=== PATIENT | male | born 1960 | race Caucasian/White ===

== ENCOUNTER 2018-06-11 11:42 | Inpatient (IN) ==
[2018-06-11] MEDS ORDERED: Piperacillin/Tazobactam 3.375 GM in 0.9 % Sodium Chloride Mini Bag 100 ML IVPB ONE (12:52)
[2018-06-11 13:06] LABS: Basophils % 0.2 %; Eosinophils # 0.2 K/mcL (0.0-0.6); Eosinophils % 2.2 %; Hemoglobin 12.4 g/dL (12.9-16.9); Immature Granulocytes % 0.5 % (0-4); Lymphocytes # 1.9 K/mcL (0.6-4.6); Lymphocytes % 20.2 %; Mean Corpuscular HGB Conc 32.6 g/dL (31.6-35.5); Mean Corpuscular Hemoglobin 31.8 pg (28.0-33.3); Mean Corpuscular Volume 97.4 fL (83.0-100.0); Mean Platelet Volume 9.4 fL (9.4-12.4); Monocytes # 0.8 K/mcL (0.0-1.3); Monocytes % 8.7 %; Neutrophils # 6.3 K/mcL (1.6-8.9); Platelet Count 203 K/mcL (140-400); Red Cell Distribution Width 13.3 % (11.5-14.5); Segmented Neutrophils % 68.2 %
[2018-06-11 13:24] LABS: BUN/Creatinine Ratio 16 (6-26); Blood Urea Nitrogen 21 mg/dL (8-23); Calcium 9.1 mg/dL (8.6-10.3); Carbon Dioxide 26 mEq/L (23-29); Chloride 102 mEq/L (98-107); Glucose 247 mg/dL (70-105); Osmolality,Calculated 289 (280-300); Potassium 4.4 mEq/L (3.5-5.1); Sodium 134 mEq/L (136-145); eGFR For Non-African Americans 54 (> 60)
--- NOTE | 2018-06-11 13:28 | Emergency Department Note ---
Disposition Clinical Impression: Cellulitis Qualifiers: Site of cellulitis: extremity Site of cellulitis of extremity: lower extremity Laterality: left Qualified Code(s): L03.116 - Cellulitis of left lower limb Disposition: Admitted As Inpatient Condition: Fair Time of Disposition: 16:35 General Adult HPI - General Chief complaint: ED Extremity Problem,Nontraumatic Stated complaint: Left leg infection Time Seen by Provider: 06/11/18 12:07 Source: patient Mode of arrival: ambulatory Limitations: no limitations Nursing Notes Reviewed: Yes Vital Signs Reviewed: Yes - History of Present Illness HPI Narrative: Patient is a 58-year-old male with past medical history of diabetes presents emergency department for evaluation of left lower extremity cellulitis. Patient states his symptoms started approximately 3 days ago which he noticed redness and swelling to left lower extremity. He is seen by his primary care provider 2 days ago in which she started oral antibiotics he states he is currently on day 3 of antibiotics with no change. She thinks that the redness is getting worse is also having left-sided calf tenderness. He states he does have a history of DVT in the past. He is recommended to come to the emergency room by his primary care physician for evaluation of concerns for cellulitis. Pain Scale: 8 - Related Data Home Medications Medication Instructions Recorded Confirmed Ibuprofen [Advil] 400 mg PO QAM 09/15/17 06/11/18 Insulin LISPRO [Humalog Kwikpen 18 - 22 unit SQ TID PRN 09/15/17 06/11/18 U-100] Lisinopril [Zestril] 20 mg PO DAILY 09/15/17 06/11/18 Atorvastatin [Lipitor] 40 mg PO HS 06/11/18 06/11/18 Fexofenadine HCl [Allergy Relief] 180 mg PO DAILY 06/11/18 06/11/18 Fluticasone Propionate Nasal 1 spr NS DAILY 06/11/18 06/11/18 [Flonase] Gabapentin [Neurontin] 600 mg PO TID 06/11/18 06/11/18 Glimepiride [Amaryl] 4 mg PO DAILY 06/11/18 06/11/18 Insulin Glargine,Hum.rec.anlog 50 unit SQ QPM 06/11/18 06/11/18 [Basaglar Kwikpen U-100] Insulin Glargine,Hum.rec.anlog 60 unit SQ QAM 06/11/18 06/11/18 [Mariah Oates U-100] Meloxicam [Mobic] 7.5 mg PO DAILY 06/11/18 06/11/18 Previous Rx's Medication Instructions Recorded Acetaminophen [Tylenol] 1,000 mg PO Q6HR PRN #90 tablet 09/15/17 Allergies Allergy/AdvReac Type Severity Reaction Status Date / Time No Known Allergies Allergy Verified 06/11/18 13:30 All systems ED: reviewed and negative except as stated. Review of Systems: As Per HPI Constitutional: Denies: fever, chills Cardiovascular: Reports: edema. Denies: chest pain, palpitations, dyspnea on exertion, syncope Respiratory: Denies: cough, dyspnea, wheezes, sputum production Gastrointestinal: Denies: abdominal pain, nausea, vomiting Integumentary: Reports: rash Past Medical History - Past Medical History Attestation: Yes The following information was validated with the patient. Medical history: Reports: DVT, diabetes, hypertension, other Surgical history: Reports: orthopedic, other Psychiatric history: Reports: depression - Social History Smoking Status: Never smoker Smokeless Tobacco Status: No Alcohol use: Reports: none Drug use: Reports: none Physical Exam CONSTITUTIONAL: Well-appearing; well-nourished; A&O X 3, in no apparent distress HEAD: Normocephalic; atraumatic EYES: PERRL, no scleral icterus NOSE: The nose is normal in appearance without rhinorrhea NECK: No JVD or distended neck veins RESP: Normal chest excursion with respiration; breath sounds clear and equal bilaterally; no wheezes, rhonchi, or rales CARD: Regular rhythm, without murmurs, rub or gallop ABD: Non-distended; non-tender, soft, without rigidity, rebound or guarding,no pulsatile mass CHEST: No pain with palpation SKIN: Normal for age and race; warm and dry without diaphoresis ; no apparent lesions EXTREMITIES: Pulses are 2 plus and equal times 4 extremities. Patient has bilateral lower extremity edema, worse on the left. The left leg is erythematous from below the knee to the lower ankle. Both legs have chronic venous stasis changes. Course Course Narrative: Given the patient has increasing redness of his left lower extremity plan this time is for him to undergo basic labs and he will be admitted for cellulitis with failed outpatient treatment. We will start him on broad-spectrum antibiotics at this time including vancomycin and Zosyn. He also had a DVT ruled out with a lower extremity Doppler that was negative. Vital Signs Temperature 100.0 F H 06/11/18 11:47 Pulse Rate 90 06/11/18 11:47 Respiratory Rate 22 06/11/18 11:47 Blood Pressure 162/68 06/11/18 11:47 O2 Sat by Pulse Oximetry 94 06/11/18 11:47 Temperature 100.0 F H 06/11/18 11:47 Pulse Rate 90 06/11/18 11:47 Respiratory Rate 22 06/11/18 11:47 Blood Pressure 162/68 06/11/18 11:47 O2 Sat by Pulse Oximetry 94 06/11/18 11:47 Oxygen Delivery Oxygen Delivery Room Air Medical Decision Making - Medical Records Medical records reviewed: Yes I reviewed the patient's medical records. - Lab Data Lab results reviewed: Yes I reviewed the patient's lab results. Result diagrams: 06/11/18 12:45 06/11/18 12:45 Lab Results 06/11/18 06/11/18 Range/Units 12:45 12:45 WBC 9.3 (4.3-11.1) K/mcL RBC 3.90 L (4.19-5.50) M/mcL Hgb 12.4 L (12.9-16.9) g/dL Hct 38.0 (37.5-50.1) % MCV 97.4 (83.0-100.0) fL MCH 31.8 (28.0-33.3) pg MCHC 32.6 (31.6-35.5) g/dL RDW 13.3 (11.5-14.5) % Plt Count 203 (140-400) K/mcL MPV 9.4 (9.4-12.4) fL Immature Gran % 0.5 (0-4) % Seg Neutrophils % 68.2 % Lymphocytes % 20.2 % Monocytes % 8.7 % Eosinophils % 2.2 % Basophils % 0.2 % Neutrophils # 6.3 (1.6-8.9) K/mcL Lymphocytes # 1.9 (0.6-4.6) K/mcL Monocytes # 0.8 (0.0-1.3) K/mcL Eosinophils # 0.2 (0.0-0.6) K/mcL Basophils # 0.0 (0.0-0.2) K/mcL Sodium 134 L (136-145) mEq/L Potassium 4.4 (3.5-5.1) mEq/L Chloride 102 (98-107) mEq/L Carbon Dioxide 26 (23-29) mEq/L BUN 21 (8-23) mg/dL Creatinine 1.35 H (0.70-1.30) mg/dL Est GFR ( Amer) > 60 (> 60) Est GFR (Non-Af Amer) 54 L (> 60) BUN/Creatinine Ratio 16 (6-26) Glucose 247 H (70-105) mg/dL Calculated Osmolality 289 (280-300) Calcium 9.1 (8.6-10.3) mg/dL - Radiology Data Radiology results reviewed: Yes I reviewed the patient's radiology results.
--- NOTE | 2018-06-11 13:33 | Emergency Department Note ---
Disposition Clinical Impression: Cellulitis Qualifiers: Site of cellulitis: extremity Site of cellulitis of extremity: lower extremity Laterality: left Qualified Code(s): L03.116 - Cellulitis of left lower limb Disposition: Admitted As Inpatient Condition: Fair Referrals: Perla Manuel CNP [Primary Care Provider] - Forms: ED Satisfaction Letter General Adult HPI - General Chief complaint: ED Extremity Problem,Nontraumatic Stated complaint: Left leg infection Time Seen by Provider: 06/11/18 12:07 - History of Present Illness Pain Scale: 8 - Related Data Home Medications Medication Instructions Recorded Confirmed Ibuprofen [Advil] 400 mg PO QAM 09/15/17 09/15/17 Insulin Glargine,Hum.rec.anlog 60 unit SQ BID 09/15/17 09/15/17 [Lantus Solostar] Insulin LISPRO [Humalog Kwikpen 18 - 22 unit SQ TID PRN 09/15/17 09/15/17 U-100] Lisinopril [Zestril] 20 mg PO DAILY 09/15/17 09/15/17 Previous Rx's Medication Instructions Recorded Acetaminophen [Tylenol] 1,000 mg PO Q6HR PRN #90 tablet 09/15/17 Allergies Allergy/AdvReac Type Severity Reaction Status Date / Time No Known Allergies Allergy Verified 09/15/17 12:15 Past Medical History - Past Medical History Medical history: Reports: DVT, diabetes, hypertension, other Surgical history: Reports: orthopedic, other Psychiatric history: Reports: depression - Social History Smoking Status: Never smoker Smokeless Tobacco Status: No Alcohol use: Reports: none Drug use: Reports: none Course Vital Signs Temperature 100.0 F H 06/11/18 11:47 Pulse Rate 90 06/11/18 11:47 Respiratory Rate 22 06/11/18 11:47 Blood Pressure 162/68 06/11/18 11:47 O2 Sat by Pulse Oximetry 94 06/11/18 11:47 Temperature 100.0 F H 06/11/18 11:47 Pulse Rate 90 06/11/18 11:47 Respiratory Rate 22 06/11/18 11:47 Blood Pressure 162/68 06/11/18 11:47 O2 Sat by Pulse Oximetry 94 06/11/18 11:47 Oxygen Delivery Oxygen Delivery Room Air Medical Decision Making - Lab Data Result diagrams: 06/11/18 12:45 06/11/18 12:45 Lab Results 06/11/18 06/11/18 Range/Units 12:45 12:45 WBC 9.3 (4.3-11.1) K/mcL RBC 3.90 L (4.19-5.50) M/mcL Hgb 12.4 L (12.9-16.9) g/dL Hct 38.0 (37.5-50.1) % MCV 97.4 (83.0-100.0) fL MCH 31.8 (28.0-33.3) pg MCHC 32.6 (31.6-35.5) g/dL RDW 13.3 (11.5-14.5) % Plt Count 203 (140-400) K/mcL MPV 9.4 (9.4-12.4) fL Immature Gran % 0.5 (0-4) % Seg Neutrophils % 68.2 % Lymphocytes % 20.2 % Monocytes % 8.7 % Eosinophils % 2.2 % Basophils % 0.2 % Neutrophils # 6.3 (1.6-8.9) K/mcL Lymphocytes # 1.9 (0.6-4.6) K/mcL Monocytes # 0.8 (0.0-1.3) K/mcL Eosinophils # 0.2 (0.0-0.6) K/mcL Basophils # 0.0 (0.0-0.2) K/mcL Sodium 134 L (136-145) mEq/L Potassium 4.4 (3.5-5.1) mEq/L Chloride 102 (98-107) mEq/L Carbon Dioxide 26 (23-29) mEq/L BUN 21 (8-23) mg/dL Creatinine 1.35 H (0.70-1.30) mg/dL Est GFR ( Amer) > 60 (> 60) Est GFR (Non-Af Amer) 54 L (> 60) BUN/Creatinine Ratio 16 (6-26) Glucose 247 H (70-105) mg/dL Calculated Osmolality 289 (280-300) Calcium 9.1 (8.6-10.3) mg/dL Attestation Statement - Attestation Attestation: I examined this patient and my medical decision-making was reviewed with the Resident Physician. I agree with the documented findings, disposition and treatment plan as described except to the extent set forth below. 58 year old male kristen ot the ED with complaitns cellutlisi to his LLE. Susan states that he has been taking outpatinet therapy with ABX and it has not been working in addiiton to being a diabetic and feeling more nauseated than usual with a decreased appetite. He is insulin dependent. We will start zosyn and vanc and then admit to medicine as well as evalutd his diabetes to ensure that he is not in DKA.
[2018-06-11] MEDS ORDERED: Naloxone 0.4 MG/ML INJ IVP PRN (16:24)
[2018-06-11] MEDS ORDERED: *HR* Dextrose 50 % in Water (Syg) 50 ML SYRINGE IVP PRN (16:29)
[2018-06-11] MEDS ORDERED: D5% in Water 1,000 ML IVC PRN (16:29)
[2018-06-11] MEDS ORDERED: Dextrose Gel 15 GM/37.5 ML TUBE PO PRN ×2 (16:29)
--- NOTE | 2018-06-11 16:39 | Internal Med History&Physical ---
<Noemi Tubbs - Last Filed: 06/12/18 18:06> Date of Encounter: 06/12/18 Time of Encounter: 16:32 Internal Medicine - H&P: HPI Chief complaint: Left leg pain redness swelling Admitted From: Emergency Dept Plans for Post Hospital Care: Home History of present illness: Mr. Wesley is a 58 year old male past medical history of diabetes hypertension - according to patient he has been experiencing redness and swelling and pain to his left lower extremity for approximately 3 days. He was seen by his primary care provider 2 days ago he started him on oral antibiotics Bactrim and clindamycin and Levaquin He does admit to nausea fevers and chills . He states he has been able to eat and drink and has had adequate urinary output He thought that the redness has worsened and he has left-sided calf tenderness. He does have a history of DVT in the past. He also has a past history of cellulitis in the same leg. He was treated partly one year ago with oral antibiotics however he felt that the cellulitis really never resolved. He presented to the ER with the above complaints. Venous duplex negative for DVT In the ER lab work did reveal aAKI and elevated glucose. He did have a low- grade temperature of 100 one presentation. Blood cultures were obtained patient was initiated on vancomycin and Zosyn and has been admitted for further workup and evaluation currently patient complains of left lower leg pain his leg is red and swollen and tender to touch. Gait as he would replace stable this time. I did review this case with Past Med Surg Social Fam HX - Past Medical History Medical history: DVT, diabetes, hypertension, other Additional medical history: pyelonephritis, obesity,colitis, Psychiatric history: depression - Past Surgical History Surgical History: orthopedic, other Additional surgical history: heart cath no stents, hand surgery, left leg - Social History Smoking Status: Never smoker Smokeless Tobacco Status: No Alcohol use: none Drug use: none - Family History Father Living Status: Age at : 64 Cause of : MA Internal Medicine - H&P: Meds Acetaminophen [Tylenol] 1,000 mg PO Q6HR PRN #90 tablet 09/15/17 [Rx] Ibuprofen [Advil] 400 mg PO QAM 09/15/17 [History] Insulin LISPRO [Humalog Kwikpen U-100] 18 - 22 unit SQ TID PRN 09/15/17 [History ] Lisinopril [Zestril] 20 mg PO DAILY 09/15/17 [History] Atorvastatin [Lipitor] 40 mg PO HS 06/11/18 [History] Fexofenadine HCl [Allergy Relief] 180 mg PO DAILY 06/11/18 [History] Fluticasone Propionate Nasal [Flonase] 1 spr NS DAILY 06/11/18 [History] Gabapentin [Neurontin] 600 mg PO TID 06/11/18 [History] Glimepiride [Amaryl] 4 mg PO DAILY 06/11/18 [History] Insulin Glargine,Hum.rec.anlog [Basaglar Kwikpen U-100] 50 unit SQ QPM 06/11/18 [History] Insulin Glargine,Hum.rec.anlog [Basaglar Kwikpen U-100] 60 unit SQ QAM 06/11/18 [History] Meloxicam [Mobic] 7.5 mg PO DAILY 06/11/18 [History] 3 Allergy/AdvReac Type Severity Reaction Status Date / Time No Known Allergies Allergy Verified 06/11/18 13:30 All Systems PM: A 10-system review of systems was performed and is negative for pertinent findings except as documented above in the HPI. - Constitutional Constitutional: chills, fever(s) - EENT Eyes: no change in vision, no discharge, no pain, no photophobia Nose, mouth and throat: no dysphagia, no nasal discharge, no neck pain, no sore throat - Cardiovascular Cardiovascular ROS IM: no chest pain, no diaphoresis, no dyspnea, no lightheadedness, no palpitations, no syncope - Respiratory Respiratory: no cough, no dyspnea, no wheezing, no excessive phlegm production - Gastrointestinal Gastrointestinal: nausea - Musculoskeletal Musculoskeletal ROS IM: no numbness, no tingling - Integumentary Integumentary IM: no rash, no unusual bruising - Neurological Neurological ROS: no confusion, no convulsions, no focal weakness, no numbness, no tingling, no tremor(s) - Hematologic/Lymphatic Hematologic/Lymphatic: no easy bruising - Constitutional Vitals: Temp Pulse Resp BP Pulse Ox 100.0 F H 90 22 162/68 94 06/11/18 11:47 06/11/18 11:47 06/11/18 11:47 06/11/18 11:47 06/11/18 11:47 General appearance: Present: A&O X 3, morbidly obese Exam: see above - Head Head exam: Present: atraumatic, normocephalic - Eye Eye exam: Present: PERRL, conjuntiva pink, sclera anicteric - Neck Neck exam general surgery: Present: supple, trachea midline. Absent: lymphadenopathy - Respiratory Respiratory exam: Present: CTAB. Absent: accessory muscle use, rales, rhonchi, wheezes - Cardiovascular Cardiovascular exam: Present: RRR, +S1, +S2. Absent: diastolic murmur, gallop, rubs, systolic murmur - GI/Abdominal GI/Abdominal exam: Present: normal bowel sounds, soft, no peritoneal signs. Absent: distended, tenderness - Extremities Exam Extremities exam: Present: pedal edema, tenderness, warm, radial pulses palpable and symmetrical. Absent: calf tenderness, cyanotic - Neurological Exam Neurological exam: Present: CN II-XII intact, oriented X3, no focal deficits. Absent: pronater drift, facial droop, speech deficit - Skin Skin exam: Present: dry, erythema, intact, warm Internal Med - H&P Results - Labs CBC & Chem 7: 06/12/18 03:55 06/12/18 03:55 - Assessment and plan (1) Cellulitis Current Visit: Yes Status: Acute Assessment and plan: Patient has been experiencing 3-4 days of redness swelling tenderness to the point he is unable to ambulate. He was placed on Bactrim and Levaquin and clindamycin by PCP however symptoms continue to worsen. He also expansion chills and subjective fevers. We will continue with vancomycin and Zosyn Blood cultures have been obtained Continue with Zofran as needed for nausea Tylenol and [place] for pain Qualifiers: Site of cellulitis: extremity Site of cellulitis of extremity: lower extremity Laterality: left Qualified Code(s): L03.116 - Cellulitis of left lower limb (2) Diabetes Current Visit: Yes Status: Acute Assessment and plan: 1 Accu-Cheks before meals at bedtime with insulin scale insulin as well as basal Diabetic diet Qualifiers: Diabetes mellitus type: type 2 Diabetes mellitus termite control servicer insulin use: with termite control servicer use Diabetes mellitus complication status: without complication Qualified Code(s): E11.9 - Type 2 diabetes mellitus without complications; Z79.4 - [facility] (current) use of insulin (3) HTN (hypertension) Current Visit: Yes Status: Acute Assessment and plan: Continue with home medications Qualifiers: Hypertension type: essential hypertension Qualified Code(s): I10 - Essential (primary) hypertension (4) DVT prophylaxis Current Visit: Yes Status: Acute Assessment and plan: Heparin subcutaneous. Venous Doppler negative for DVT - Time Spent With Patient Total time spent is greater than 50% in coordination of care (as documented) at patient's floor/unit and/or counseling patient: <Lobo Golden - Last Filed: 06/12/18 21:45> Date of Encounter: 06/12/18 Internal Medicine - H&P: HPI History of present illness: Mr. Wesley is a 58 year old male All Systems PM: A 10-system review of systems was performed and is negative for pertinent findings except as documented above in the HPI. - Constitutional Vitals: Temp Pulse Resp BP Pulse Ox 98.2 F 65 18 166/82 96 06/12/18 19:40 06/12/18 19:40 06/12/18 19:40 06/12/18 19:40 06/12/18 19:40 Internal Med - H&P Results - Labs CBC & Chem 7: 06/12/18 03:55 06/12/18 03:55 Labs: Short CBC 06/12/18 Range/Units 03:55 WBC 10.0 (4.3-11.1) K/mcL Hgb 11.3 L (12.9-16.9) g/dL Hct 34.7 L (37.5-50.1) % Plt Count 209 (140-400) K/mcL Neutrophils # 6.3 (1.6-8.9) K/mcL BMP 06/12/18 03:55 Sodium 135 L Potassium 4.5 Chloride 104 Carbon Dioxide 25 BUN 19 Creatinine 1.35 H Glucose 147 H Calcium 8.9 - Assessment and plan (1) Cellulitis Current Visit: Yes Status: Acute Qualifiers: Site of cellulitis: extremity Site of cellulitis of extremity: lower extremity Laterality: left Qualified Code(s): L03.116 - Cellulitis of left lower limb (2) Diabetes Current Visit: Yes Status: Acute Qualifiers: Diabetes mellitus type: type 2 Diabetes mellitus termite control servicer insulin use: with termite control servicer use Diabetes mellitus complication status: without complication Qualified Code(s): E11.9 - Type 2 diabetes mellitus without complications; Z79.4 - [facility] (current) use of insulin (3) HTN (hypertension) Current Visit: Yes Status: Acute Qualifiers: Hypertension type: essential hypertension Qualified Code(s): I10 - Essential (primary) hypertension (4) DVT prophylaxis Current Visit: Yes Status: Acute - Time Spent With Patient Total time spent is greater than 50% in coordination of care (as documented) at patient's floor/unit and/or counseling patient: - Attending Attestation Seen and assessed. Continue management for foot cellulitis. Agree with plan per SOLUTIONS ANALYST
[2018-06-11] MEDS ORDERED: Ondansetron 4 MG/2 ML VIAL IVP PRN (17:09)
[2018-06-11] MEDS: Insulin LISPRO 300 UNITS/3 ML VIAL SQ SCH (17:12)
[2018-06-11] MEDS ORDERED: 0.9 % Sodium Chloride 1,000 ML IVC SCH (17:15)
[2018-06-11] MEDS: Piperacillin/Tazobactam 3.375 GM in 0.9 % Sodium Chloride Mini Bag 100 ML IVPB SCH (17:54)
[2018-06-11] MEDS: *HR* Heparin 5,000 UNIT/ML VIAL SQ SCH (17:55)
[2018-06-11] MEDS: *HR* HYDROcodone/Acet 5/325 mg TABLET PO PRN (19:57)
[2018-06-11] MEDS: Gabapentin 300 MG CAPSULE PO SCH (22:24)
[2018-06-11] MEDS: Insulin DETEMIR 100 UNIT/ML X5UNITS SQ SCH (22:26)
[2018-06-12] MEDS: Insulin LISPRO 300 UNITS/3 ML VIAL SQ SCH ×5 (00:01→22:12)
[2018-06-12] MEDS: Piperacillin/Tazobactam 3.375 GM in 0.9 % Sodium Chloride Mini Bag 100 ML IVPB SCH ×3 (01:02→16:43)
[2018-06-12 04:24] LABS: Basophils % 0.4 %; Eosinophils # 0.4 K/mcL (0.0-0.6); Eosinophils % 3.7 %; Hematocrit 34.7 % (37.5-50.1); Hemoglobin 11.3 g/dL (12.9-16.9); Immature Granulocytes % 0.4 % (0-4); Lymphocytes # 2.2 K/mcL (0.6-4.6); Lymphocytes % 21.9 %; Mean Corpuscular HGB Conc 32.6 g/dL (31.6-35.5); Mean Corpuscular Hemoglobin 31.4 pg (28.0-33.3); Mean Corpuscular Volume 96.4 fL (83.0-100.0); Mean Platelet Volume 9.2 fL (9.4-12.4); Monocytes % 10.4 %; Neutrophils # 6.3 K/mcL (1.6-8.9); Platelet Count 209 K/mcL (140-400); Red Cell Distribution Width 13.3 % (11.5-14.5); Segmented Neutrophils % 63.2 %
[2018-06-12 04:40] LABS: BUN/Creatinine Ratio 14 (6-26); Blood Urea Nitrogen 19 mg/dL (8-23); Calcium 8.9 mg/dL (8.6-10.3); Carbon Dioxide 25 mEq/L (23-29); Chloride 104 mEq/L (98-107); Glucose 147 mg/dL (70-105); Osmolality,Calculated 285 (280-300); Potassium 4.5 mEq/L (3.5-5.1); Sodium 135 mEq/L (136-145); eGFR For Non-African Americans 54 (> 60)
[2018-06-12] MEDS: *HR* Heparin 5,000 UNIT/ML VIAL SQ SCH ×2 (07:28→18:17)
[2018-06-12] MEDS: Gabapentin 300 MG CAPSULE PO SCH ×3 (07:55→22:12)
[2018-06-12] MEDS: Loratadine 10 MG TABLET PO SCH (07:55)
[2018-06-12] MEDS: 0.9 % Sodium Chloride 1,000 ML IVC SCH (08:04)
[2018-06-12] MEDS: Fluticasone Propionate Nasal 50 MCG/SPRAY BOTTLE NS SCH (09:48)
[2018-06-12] MEDS: *HR* HYDROcodone/Acet 5/325 mg TABLET PO PRN (16:44)
--- NOTE | 2018-06-12 18:09 | Internal Med Progress Note ---
Hospitalist Progress Note - Encounter Date of Encounter: 06/12/18 Time of Encounter: 11:00 - Subjective Interval History: Patient was seen and examined at bedside currently patient is sitting at the bedside with legs dangling. Left leg is very swollen and tender to touch. Encourage patient to elevate legs. Denies any pain or discomfort - Exam Vitals: Temp Pulse Resp BP Pulse Ox 98.6 F 70 18 137/79 95 06/12/18 14:49 06/12/18 14:49 06/12/18 14:49 06/12/18 14:49 06/12/18 14:49 Exam: Constitutional Constitutional: Denies any chills or fevers at this time, morbidly obese pleasant cooperative - EENT Eyes: no change in vision, no discharge, no pain, no photophobia Nose, mouth and throat: no dysphagia, no nasal discharge, no neck pain, no sore throat - Cardiovascular Cardiovascular ROS IM: no chest pain, no diaphoresis, no dyspnea, no lightheadedness, no palpitations, no syncope - Respiratory Respiratory: no cough, no dyspnea, no wheezing, no excessive phlegm production - Gastrointestinal Gastrointestinal: nausea - Musculoskeletal Musculoskeletal ROS IM: no numbness, no tingling - Integumentary Integumentary IM: no rash, no unusual bruising - Neurological Neurological ROS: no confusion, no convulsions, no focal weakness, no numbness, no tingling, no tremor(s) - Hematologic/Lymphatic Hematologic/Lymphatic: no easy bruising - Assessment and Plan (1) Cellulitis Current Visit: Yes Status: Acute Assessment and Plan: Patient has been experiencing 3-4 days of redness swelling tenderness to the point he is unable to ambulate. He was placed on Bactrim and Levaquin and clindamycin by PCP however symptoms continue to worsen. He also expansion chills and subjective fevers. We will continue with vancomycin and Zosyn Blood cultures have been obtained Continue with Zofran as needed for nausea Tylenol and [place] for pain 06/12/2018-patient continues to have redness and swelling to lower extremities. Patient was sitting beside with legs dangling. Encouraged patient to elevate legs. Patient complaining of tenderness to touch The cultures have been obtained Continue with vancomycin Zosyn for now Blood cultures pending Venous Doppler negative for DVT (2) Diabetes Current Visit: Yes Status: Acute Assessment and Plan: 1 Accu-Cheks before meals at bedtime with insulin scale insulin as well as basal Diabetic diet (3) HTN (hypertension) Current Visit: Yes Status: Acute Assessment and Plan: Early stable we will hold lisinopril for now due to KIRSTIN (4) DVT prophylaxis Current Visit: Yes Status: Acute Assessment and Plan: Heparin subcutaneous. Venous Doppler negative for DVT - Time Spent with Patient Total time spent is greater than 50% in coordination of care (as documented) at patient's floor/unit and/or counseling patient: Internal Medicine: Result - Labs CBC & Chem 7: 06/12/18 03:55 06/12/18 03:55 Labs: Short CBC 06/12/18 Range/Units 03:55 WBC 10.0 (4.3-11.1) K/mcL Hgb 11.3 L (12.9-16.9) g/dL Hct 34.7 L (37.5-50.1) % Plt Count 209 (140-400) K/mcL Neutrophils # 6.3 (1.6-8.9) K/mcL BMP 06/12/18 03:55 Sodium 135 L Potassium 4.5 Chloride 104 Carbon Dioxide 25 BUN 19 Creatinine 1.35 H Glucose 147 H Calcium 8.9 Consult Discharge Plan - Plan Referrals: Perla Manuel, EDI CONSULTANT [Primary Care Provider] - (1) Cellulitis Qualifiers: Site of cellulitis: extremity Site of cellulitis of extremity: lower extremity Laterality: left Qualified Code(s): L03.116 - Cellulitis of left lower limb (2) Diabetes Qualifiers: Diabetes mellitus type: type 2 Diabetes mellitus care home insulin use: with care home use Diabetes mellitus complication status: without complication Qualified Code(s): E11.9 - Type 2 diabetes mellitus without complications; Z79.4 - intermediate (current) use of insulin (3) HTN (hypertension) Qualifiers: Hypertension type: essential hypertension Qualified Code(s): I10 - Essential (primary) hypertension
[2018-06-12] MEDS: Acetaminophen 325 MG TABLET PO PRN (22:11)
[2018-06-12] MEDS: Insulin DETEMIR 100 UNIT/ML X5UNITS SQ SCH (22:12)
[2018-06-13] MEDS: *HR* HYDROcodone/Acet 5/325 mg TABLET PO PRN (02:47)
[2018-06-13] MEDS: Piperacillin/Tazobactam 3.375 GM in 0.9 % Sodium Chloride Mini Bag 100 ML IVPB SCH ×3 (02:47→16:10)
[2018-06-13] MEDS: Acetaminophen 325 MG TABLET PO PRN (04:30)
[2018-06-13] MEDS: 0.9 % Sodium Chloride 1,000 ML IVC SCH ×3 (05:16→22:01)
[2018-06-13 05:29] LABS: Basophils % 0.4 %; Eosinophils # 0.3 K/mcL (0.0-0.6); Eosinophils % 4.5 %; Hematocrit 35.6 % (37.5-50.1); Hemoglobin 11.6 g/dL (12.9-16.9); Immature Granulocytes % 0.3 % (0-4); Lymphocytes # 1.9 K/mcL (0.6-4.6); Lymphocytes % 25.6 %; Mean Corpuscular HGB Conc 32.6 g/dL (31.6-35.5); Mean Corpuscular Hemoglobin 31.4 pg (28.0-33.3); Mean Corpuscular Volume 96.2 fL (83.0-100.0); Mean Platelet Volume 9.2 fL (9.4-12.4); Monocytes # 0.7 K/mcL (0.0-1.3); Monocytes % 8.6 %; Neutrophils # 4.6 K/mcL (1.6-8.9); Platelet Count 207 K/mcL (140-400); Segmented Neutrophils % 60.6 %
[2018-06-13 05:46] LABS: BUN/Creatinine Ratio 17 (6-26); Blood Urea Nitrogen 19 mg/dL (8-23); Calcium 8.9 mg/dL (8.6-10.3); Carbon Dioxide 24 mEq/L (23-29); Chloride 106 mEq/L (98-107); Glucose 162 mg/dL (70-105); Osmolality,Calculated 290 (280-300); Potassium 4.8 mEq/L (3.5-5.1); Sodium 137 mEq/L (136-145); eGFR For Non-African Americans > 60 (> 60)
[2018-06-13] MEDS: *HR* Heparin 5,000 UNIT/ML VIAL SQ SCH ×2 (06:33→16:13)
[2018-06-13] MEDS: Insulin LISPRO 300 UNITS/3 ML VIAL SQ SCH ×4 (08:07→22:02)
[2018-06-13] MEDS: Fluticasone Propionate Nasal 50 MCG/SPRAY BOTTLE NS SCH (08:07)
[2018-06-13] MEDS: Loratadine 10 MG TABLET PO SCH (08:07)
[2018-06-13] MEDS: Gabapentin 300 MG CAPSULE PO SCH ×3 (08:07→20:13)
--- NOTE | 2018-06-13 10:39 | Internal Med Progress Note ---
Hospitalist Progress Note - Encounter Date of Encounter: 06/13/18 Time of Encounter: 10:39 - Subjective Interval History: Patient was seen and examined at bedside currently patient is sitting at the bedside with legs dangling. Left leg is very swollen and tender to touch. Encourage patient to elevate legs. Denies any pain or discomfort - Exam Vitals: Temp Pulse Resp BP Pulse Ox 97.7 F 54 14 136/67 97 06/13/18 10:33 06/13/18 10:33 06/13/18 10:33 06/13/18 10:33 06/13/18 10:33 Exam: Constitutional Constitutional: Denies any chills or fevers at this time, morbidly obese pleasant cooperative - EENT Eyes: no change in vision, no discharge, no pain, no photophobia Nose, mouth and throat: no dysphagia, no nasal discharge, no neck pain, no sore throat - Cardiovascular Cardiovascular ROS IM: no chest pain, no diaphoresis, no dyspnea, no lightheadedness, no palpitations, no syncope - Respiratory Respiratory: no cough, no dyspnea, no wheezing, no excessive phlegm production - Gastrointestinal Gastrointestinal: nausea - Musculoskeletal Musculoskeletal ROS IM: no numbness, no tingling - Integumentary Integumentary IM: no rash, no unusual bruising - Neurological Neurological ROS: no confusion, no convulsions, no focal weakness, no numbness, no tingling, no tremor(s) - Hematologic/Lymphatic Hematologic/Lymphatic: no easy bruising - Assessment and Plan (1) Cellulitis Current Visit: Yes Status: Acute Assessment and Plan: Patient has been experiencing 3-4 days of redness swelling tenderness to the point he is unable to ambulate. He was placed on Bactrim and Levaquin and clindamycin by PCP however symptoms continue to worsen. He also expansion chills and subjective fevers. We will continue with vancomycin and Zosyn Blood cultures have been obtained Continue with Zofran as needed for nausea Tylenol and [place] for pain 06/12/2018-patient continues to have redness and swelling to lower extremities. Patient was sitting beside with legs dangling. Encouraged patient to elevate legs. Patient complaining of tenderness to touch The cultures have been obtained Continue with vancomycin Zosyn for now Blood cultures pending Venous Doppler negative for DVT 06/13- patient continues to have redness and swelling to left lower extremity very tender to touch. We will order CT of leg to check for gas/osteo-myelitis. Encouraged patient to keep leg elevated Continue with vancomycin and Zosyn Blood cultures pending Venous Doppler negative for DVT (2) Diabetes Current Visit: Yes Status: Acute Assessment and Plan: 1 Accu-Cheks before meals at bedtime with insulin scale insulin as well as basal Diabetic diet (3) HTN (hypertension) Current Visit: Yes Status: Acute Assessment and Plan: We will resume home medication (4) DVT prophylaxis Current Visit: Yes Status: Acute Assessment and Plan: Heparin subcutaneous. Venous Doppler negative for DVT (5) KIRSTIN (acute kidney injury) Current Visit: Yes Status: Acute Assessment and Plan: Patient presented with a creatinine 1.35-baseline around 1.14-patient was given IV fluids and is returned to baseline Lisinopril was held we will resume Monitor intake and output daily weights Renal dose antibiotics - Time Spent with Patient Total time spent is greater than 50% in coordination of care (as documented) at patient's floor/unit and/or counseling patient: Internal Medicine: Result - Labs CBC & Chem 7: 06/13/18 04:40 06/13/18 04:40 Labs: Short CBC 06/13/18 Range/Units 04:40 WBC 7.5 (4.3-11.1) K/mcL Hgb 11.6 L (12.9-16.9) g/dL Hct 35.6 L (37.5-50.1) % Plt Count 207 (140-400) K/mcL Neutrophils # 4.6 (1.6-8.9) K/mcL BMP 06/13/18 04:40 Sodium 137 Potassium 4.8 Chloride 106 Carbon Dioxide 24 BUN 19 Creatinine 1.10 Glucose 162 H Calcium 8.9 Consult Discharge Plan - Plan Referrals: Perla Manuel, [employer] PATTERN[employer]KER [Primary Care Provider] - (1) Cellulitis Qualifiers: Site of cellulitis: extremity Site of cellulitis of extremity: lower extremity Laterality: left Qualified Code(s): L03.116 - Cellulitis of left lower limb (2) Diabetes Qualifiers: Diabetes mellitus type: type 2 Diabetes mellitus group home insulin use: with intermediate accountant use Diabetes mellitus complication status: without complication Qualified Code(s): E11.9 - Type 2 diabetes mellitus without complications; Z79.4 - skilled nursing (current) use of insulin (3) HTN (hypertension) Qualifiers: Hypertension type: essential hypertension Qualified Code(s): I10 - Essential (primary) hypertension
[2018-06-13] MEDS: *HR* OxyCODONE Immed Rel 5 MG TABLET PO PRN (20:13)
[2018-06-13] MEDS: Insulin DETEMIR 100 UNIT/ML X5UNITS SQ SCH (22:03)
[2018-06-14] MEDS: Piperacillin/Tazobactam 3.375 GM in 0.9 % Sodium Chloride Mini Bag 100 ML IVPB SCH ×3 (01:01→17:15)
[2018-06-14] MEDS: *HR* HYDROcodone/Acet 5/325 mg TABLET PO PRN (01:13)
[2018-06-14 03:14] LABS: Basophils % 0.3 %; Eosinophils # 0.4 K/mcL (0.0-0.6); Eosinophils % 3.9 %; Hematocrit 34.1 % (37.5-50.1); Hemoglobin 11.2 g/dL (12.9-16.9); Immature Granulocytes % 0.3 % (0-4); Lymphocytes # 2.2 K/mcL (0.6-4.6); Lymphocytes % 24.5 %; Mean Corpuscular HGB Conc 32.8 g/dL (31.6-35.5); Mean Corpuscular Hemoglobin 31.4 pg (28.0-33.3); Mean Corpuscular Volume 95.5 fL (83.0-100.0); Mean Platelet Volume 9.2 fL (9.4-12.4); Monocytes # 0.6 K/mcL (0.0-1.3); Monocytes % 6.8 %; Neutrophils # 5.8 K/mcL (1.6-8.9); Platelet Count 186 K/mcL (140-400); Red Blood Count 3.57 M/mcL (4.19-5.50); Red Cell Distribution Width 12.7 % (11.5-14.5); Segmented Neutrophils % 64.2 %
[2018-06-14 03:33] LABS: BUN/Creatinine Ratio 17 (6-26); Blood Urea Nitrogen 16 mg/dL (8-23); Calcium 8.6 mg/dL (8.6-10.3); Carbon Dioxide 21 mEq/L (23-29); Chloride 105 mEq/L (98-107); Glucose 226 mg/dL (70-105); Osmolality,Calculated 286 (280-300); Potassium 4.5 mEq/L (3.5-5.1); Sodium 134 mEq/L (136-145); eGFR For Non-African Americans > 60 (> 60)
[2018-06-14] MEDS: *HR* Heparin 5,000 UNIT/ML VIAL SQ SCH ×2 (05:16→17:18)
[2018-06-14] MEDS: Loratadine 10 MG TABLET PO SCH (09:15)
[2018-06-14] MEDS: Gabapentin 300 MG CAPSULE PO SCH ×3 (09:15→21:31)
[2018-06-14] MEDS: Fluticasone Propionate Nasal 50 MCG/SPRAY BOTTLE NS SCH (09:16)
[2018-06-14] MEDS: Insulin LISPRO 300 UNITS/3 ML VIAL SQ SCH ×4 (09:16→21:35)
--- NOTE | 2018-06-14 13:55 | Internal Med Progress Note ---
Hospitalist Progress Note - Encounter Date of Encounter: 06/14/18 Time of Encounter: 11:00 - Subjective Interval History: Patient was seen and examined at bedside currently patient is sitting at the bedside with legs dangling. Left leg continues to be swollen however patient feels that has improved. Again encouraged patient to keep leg elevated to help reduce swelling - Exam Vitals: Temp Pulse Resp BP Pulse Ox 98.5 F 66 18 162/76 94 06/14/18 10:21 06/14/18 10:21 06/14/18 10:21 06/14/18 10:06/14/18 10:21 Exam: Constitutional Constitutional: Denies any chills or fevers at this time, morbidly obese pleasant cooperative - EENT Eyes: no change in vision, no discharge, no pain, no photophobia Nose, mouth and throat: no dysphagia, no nasal discharge, no neck pain, no sore throat - Cardiovascular Cardiovascular ROS IM: no chest pain, no diaphoresis, no dyspnea, no lightheadedness, no palpitations, no syncope - Respiratory Respiratory: no cough, no dyspnea, no wheezing, no excessive phlegm production - Gastrointestinal Gastrointestinal: nausea - Musculoskeletal Musculoskeletal ROS IM: no numbness, no tingling - Integumentary Integumentary IM: no rash, no unusual bruising left lower leg is red swollen - Neurological Neurological ROS: no confusion, no convulsions, no focal weakness, no numbness, no tingling, no tremor(s) - Hematologic/Lymphatic Hematologic/Lymphatic: no easy bruising - Assessment and Plan (1) Cellulitis Current Visit: Yes Status: Acute Assessment and Plan: Patient has been experiencing 3-4 days of redness swelling tenderness to the point he is unable to ambulate. He was placed on Bactrim and Levaquin and clindamycin by PCP however symptoms continue to worsen. He also expansion chills and subjective fevers. We will continue with vancomycin and Zosyn Blood cultures have been obtained Continue with Zofran as needed for nausea Tylenol and [place] for pain 06/12/2018-patient continues to have redness and swelling to lower extremities. Patient was sitting beside with legs dangling. Encouraged patient to elevate legs. Patient complaining of tenderness to touch The cultures have been obtained Continue with vancomycin Zosyn for now Blood cultures pending Venous Doppler negative for DVT 06/13- patient continues to have redness and swelling to left lower extremity very tender to touch. We will order CT of leg to check for gas/osteo-myelitis. Encouraged patient to keep leg elevated Continue with vancomycin and Zosyn Blood cultures pending Venous Doppler negative for DVT 06/14 -patient continues to have redness and swelling to left lower extremity again patient is satting at bedside with leg dangling down. Encouraged patient to keep leg elevated. CT of left lower extremity MPRESSION: 1. Diffuse soft tissue edema with associated skin thickening involving the left lower extremity. This extends into the footprint predominant along the dorsal soft tissues. Correlate clinically for cellulitis. No organized drainable fluid collections are identified. No evidence for subcutaneous gas. 2. No CT evidence for osteomyelitis. 3. Tricompartmental osteoarthritis of the left knee which is severe within the medial compartment and mild to moderate within the patellofemoral and lateral compartments. 4. Small left knee effusion. Blood cultures are pending Continue with vancomycin and Zosyn Venous Doppler negative for DVT Continue pain medication triad (2) Diabetes Current Visit: Yes Status: Acute Assessment and Plan: 1 Accu-Cheks before meals at bedtime we will increase sliding scale to medium continue with basal insulin at this time Diabetic diet (3) HTN (hypertension) Current Visit: Yes Status: Acute Assessment and Plan: We will resume home medication (4) DVT prophylaxis Current Visit: Yes Status: Acute Assessment and Plan: Heparin subcutaneous. Venous Doppler negative for DVT (5) KIRSTIN (acute kidney injury) Current Visit: Yes Status: Acute Assessment and Plan: Patient presented with a creatinine 1.35-baseline around 1.14-patient was given IV fluids and is returned to baseline-we will closely monitor renal function Lisinopril was held we will resume Monitor intake and output daily weights Renal dose antibiotics - Time Spent with Patient Total time spent is greater than 50% in coordination of care (as documented) at patient's floor/unit and/or counseling patient: Internal Medicine: Result - Labs CBC & Chem 7: 06/14/18 02:46 06/14/18 02:46 Labs: Short CBC 06/14/18 Range/Units 02:46 WBC 9.0 (4.3-11.1) K/mcL Hgb 11.2 L (12.9-16.9) g/dL Hct 34.1 L (37.5-50.1) % Plt Count 186 (140-400) K/mcL Neutrophils # 5.8 (1.6-8.9) K/mcL BMP 06/14/18 02:46 Sodium 134 L Potassium 4.5 Chloride 105 Carbon Dioxide 21 L BUN 16 Creatinine 0.94 Glucose 226 H Calcium 8.6 - Impressions Impressions Lower Extremity CT 06/13/18 17:03 IMPRESSION: 1. Diffuse soft tissue edema with associated skin thickening involving the left lower extremity. This extends into the footprint predominant along the dorsal soft tissues. Correlate clinically for cellulitis. No organized drainable fluid collections are identified. No evidence for subcutaneous gas. 2. No CT evidence for osteomyelitis. 3. Tricompartmental osteoarthritis of the left knee which is severe within the medial compartment and mild to moderate within the patellofemoral and lateral compartments. 4. Small left knee effusion. D/ / Montrell Reardon MD / Montrell Reardon MD Interpreting Provider: Montrell Reardon MD Consult Discharge Plan - Plan Referrals: Perla Manuel, DECORATOR HAND [Primary Care Provider] - (1) Cellulitis Qualifiers: Site of cellulitis: extremity Site of cellulitis of extremity: lower extremity Laterality: left Qualified Code(s): L03.116 - Cellulitis of left lower limb (2) Diabetes Qualifiers: Diabetes mellitus type: type 2 Diabetes mellitus assistant terminal manager insulin use: with assistant terminal manager use Diabetes mellitus complication status: without complication Qualified Code(s): E11.9 - Type 2 diabetes mellitus without complications; Z79.4 - middle or intermediate school principal (current) use of insulin (3) HTN (hypertension) Qualifiers: Hypertension type: essential hypertension Qualified Code(s): I10 - Essential (primary) hypertension
[2018-06-14] MEDS: 0.9 % Sodium Chloride 1,000 ML IVC SCH (13:59)
[2018-06-14] MEDS: Lisinopril 20 MG TABLET PO SCH (15:00)
[2018-06-14] MEDS: Insulin DETEMIR 100 UNIT/ML X5UNITS SQ SCH (21:34)
[2018-06-14] MEDS: *HR* OxyCODONE Immed Rel 5 MG TABLET PO PRN (21:49)
[2018-06-15] MEDS: Piperacillin/Tazobactam 3.375 GM in 0.9 % Sodium Chloride Mini Bag 100 ML IVPB SCH ×3 (00:36→18:14)
[2018-06-15 04:29] LABS: Basophils % 0.3 %; Eosinophils # 0.3 K/mcL (0.0-0.6); Eosinophils % 3.7 %; Hematocrit 33.8 % (37.5-50.1); Hemoglobin 11.2 g/dL (12.9-16.9); Immature Granulocytes % 0.3 % (0-4); Lymphocytes % 22.3 %; Mean Corpuscular HGB Conc 33.1 g/dL (31.6-35.5); Mean Corpuscular Hemoglobin 31.4 pg (28.0-33.3); Mean Corpuscular Volume 94.7 fL (83.0-100.0); Mean Platelet Volume 9.3 fL (9.4-12.4); Monocytes # 0.6 K/mcL (0.0-1.3); Monocytes % 7.1 %; Platelet Count 204 K/mcL (140-400); Red Blood Count 3.57 M/mcL (4.19-5.50); Red Cell Distribution Width 12.5 % (11.5-14.5); Segmented Neutrophils % 66.3 %
[2018-06-15 04:39] LABS: BUN/Creatinine Ratio 15 (6-26); Blood Urea Nitrogen 14 mg/dL (8-23); Carbon Dioxide 26 mEq/L (23-29); Chloride 103 mEq/L (98-107); Glucose 204 mg/dL (70-105); Osmolality,Calculated 284 (280-300); Potassium 4.2 mEq/L (3.5-5.1); Sodium 134 mEq/L (136-145); eGFR For Non-African Americans > 60 (> 60)
[2018-06-15] MEDS: *HR* Heparin 5,000 UNIT/ML VIAL SQ SCH ×2 (06:27→18:15)
[2018-06-15] MEDS: *HR* OxyCODONE Immed Rel 5 MG TABLET PO PRN ×2 (07:59→23:04)
--- NOTE | 2018-06-15 08:20 | Internal Med Progress Note ---
Hospitalist Progress Note - Encounter Date of Encounter: 06/15/18 Time of Encounter: 08:20 - Subjective Interval History: Patient was seen and examined at bedside currently patient is sitting at the bedside with legs dangling. Left leg continues to be swollen however patient feels that has improved. Again encouraged patient to keep leg elevated to help reduce swelling. I am suspicious of possible Gout , will check uric acid level - Exam Vitals: Temp Pulse Resp BP Pulse Ox 98.7 F 70 18 148/88 93 06/15/18 07:07 06/15/18 07:07 06/15/18 07:07 06/15/18 07:07 06/15/18 07:07 Exam: Constitutional Constitutional: Denies any chills or fevers at this time, morbidly obese pleasant cooperative - EENT Eyes: no change in vision, no discharge, no pain, no photophobia Nose, mouth and throat: no dysphagia, no nasal discharge, no neck pain, no sore throat - Cardiovascular Cardiovascular ROS IM: no chest pain, no diaphoresis, no dyspnea, no lightheadedness, no palpitations, no syncope - Respiratory Respiratory: no cough, no dyspnea, no wheezing, no excessive phlegm production - Gastrointestinal Gastrointestinal: nausea - Musculoskeletal Musculoskeletal ROS IM: no numbness, no tingling - Integumentary Integumentary IM: no rash, no unusual bruising left lower leg is red swollen - Neurological Neurological ROS: no confusion, no convulsions, no focal weakness, no numbness, no tingling, no tremor(s) - Hematologic/Lymphatic Hematologic/Lymphatic: no easy bruising - Assessment and Plan (1) Cellulitis Current Visit: Yes Status: Acute Assessment and Plan: Patient has been experiencing 3-4 days of redness swelling tenderness to the point he is unable to ambulate. He was placed on Bactrim and Levaquin and clindamycin by PCP however symptoms continue to worsen. He also expansion chills and subjective fevers. We will continue with vancomycin and Zosyn Blood cultures have been obtained Continue with Zofran as needed for nausea Tylenol and [place] for pain 06/12/2018-patient continues to have redness and swelling to lower extremities. Patient was sitting beside with legs dangling. Encouraged patient to elevate legs. Patient complaining of tenderness to touch The cultures have been obtained Continue with vancomycin Zosyn for now Blood cultures pending Venous Doppler negative for DVT 06/13- patient continues to have redness and swelling to left lower extremity very tender to touch. We will order CT of leg to check for gas/osteo-myelitis. Encouraged patient to keep leg elevated Continue with vancomycin and Zosyn Blood cultures pending Venous Doppler negative for DVT 06/14 -patient continues to have redness and swelling to left lower extremity again patient is satting at bedside with leg dangling down. Encouraged patient to keep leg elevated. CT of left lower extremity MPRESSION: 1. Diffuse soft tissue edema with associated skin thickening involving the left lower extremity. This extends into the footprint predominant along the dorsal soft tissues. Correlate clinically for cellulitis. No organized drainable fluid collections are identified. No evidence for subcutaneous gas. 2. No CT evidence for osteomyelitis. 3. Tricompartmental osteoarthritis of the left knee which is severe within the medial compartment and mild to moderate within the patellofemoral and lateral compartments. 4. Small left knee effusion. Blood cultures are pending Continue with vancomycin and Zosyn Venous Doppler negative for DVT Continue pain medication triad 06/15 Con to have redness and swelling, however has improved some. Suspicious for possible gout which may be contributing to L foot swelling- will check uric acid level Blood cultures are pending Continue with vancomycin and Zosyn Venous Doppler negative for DVT Continue pain medication triad (2) Diabetes Current Visit: Yes Status: Acute Assessment and Plan: 1 Accu-Cheks before meals at bedtime we will increase sliding scale to medium continue with basal insulin at this time Diabetic diet (3) HTN (hypertension) Current Visit: Yes Status: Acute Assessment and Plan: We will resume home medication (4) KIRSTIN (acute kidney injury) Current Visit: Yes Status: Acute Assessment and Plan: Patient presented with a creatinine 1.35-baseline around 1.14-patient was given IV fluids and is returned to baseline-we will closely monitor renal function Lisinopril was held we will resume, mobic resumed Monitor intake and output daily weights Renal dose antibiotics (5) DVT prophylaxis Current Visit: Yes Status: Acute Assessment and Plan: Heparin subcutaneous. Venous Doppler negative for DVT - Time Spent with Patient Total time spent is greater than 50% in coordination of care (as documented) at patient's floor/unit and/or counseling patient: Internal Medicine: Result - Labs CBC & Chem 7: 06/15/18 03:51 06/15/18 03:51 Labs: Short CBC 06/15/18 Range/Units 03:51 WBC 9.0 (4.3-11.1) K/mcL Hgb 11.2 L (12.9-16.9) g/dL Hct 33.8 L (37.5-50.1) % Plt Count 204 (140-400) K/mcL Neutrophils # 6.0 (1.6-8.9) K/mcL BMP 06/15/18 03:51 Sodium 134 L Potassium 4.2 Chloride 103 Carbon Dioxide 26 BUN 14 Creatinine 0.94 Glucose 204 H Calcium 9.0 Consult Discharge Plan - Plan Referrals: Perla Manuel, COMMISSIONS MANAGER [Primary Care Provider] - (1) Cellulitis Qualifiers: Site of cellulitis: extremity Site of cellulitis of extremity: lower extremity Laterality: left Qualified Code(s): L03.116 - Cellulitis of left lower limb (2) Diabetes Qualifiers: Diabetes mellitus type: type 2 Diabetes mellitus terminal operations manager insulin use: with terminal operations manager use Diabetes mellitus complication status: without complication Qualified Code(s): E11.9 - Type 2 diabetes mellitus without complications; Z79.4 - buttermilk drier operator (current) use of insulin (3) HTN (hypertension) Qualifiers: Hypertension type: essential hypertension Qualified Code(s): I10 - Essential (primary) hypertension
[2018-06-15] MEDS: Insulin LISPRO 300 UNITS/3 ML VIAL SQ SCH ×4 (08:48→20:24)
[2018-06-15 09:44] LABS: Uric Acid 3.4 mg/dL (2.3-7.6)
[2018-06-15] MEDS: Gabapentin 300 MG CAPSULE PO SCH ×3 (11:48→20:21)
[2018-06-15] MEDS: Lisinopril 20 MG TABLET PO SCH (11:48)
[2018-06-15] MEDS: Loratadine 10 MG TABLET PO SCH (11:48)
[2018-06-15] MEDS: Fluticasone Propionate Nasal 50 MCG/SPRAY BOTTLE NS SCH (11:49)
[2018-06-15] MEDS: Acetaminophen 325 MG TABLET PO PRN (16:10)
[2018-06-15] MEDS: Insulin DETEMIR 100 UNIT/ML X5UNITS SQ SCH (20:26)
[2018-06-16] MEDS: Piperacillin/Tazobactam 3.375 GM in 0.9 % Sodium Chloride Mini Bag 100 ML IVPB SCH ×3 (06:04→16:36)
[2018-06-16] MEDS: *HR* Heparin 5,000 UNIT/ML VIAL SQ SCH ×2 (06:19→16:37)
[2018-06-16] MEDS: Fluticasone Propionate Nasal 50 MCG/SPRAY BOTTLE NS SCH (09:38)
[2018-06-16] MEDS: Loratadine 10 MG TABLET PO SCH (09:38)
[2018-06-16] MEDS: Lisinopril 20 MG TABLET PO SCH (09:38)
[2018-06-16] MEDS: Gabapentin 300 MG CAPSULE PO SCH ×3 (09:38→21:24)
[2018-06-16] MEDS: Insulin LISPRO 300 UNITS/3 ML VIAL SQ SCH ×4 (09:39→21:24)
[2018-06-16] MEDS: *HR* HYDROcodone/Acet 5/325 mg TABLET PO PRN (09:46)
--- NOTE | 2018-06-16 11:00 | Infectious Disease Consult ---
Date of Encounter: 06/16/18 Time of Encounter: 10:58 Assessment and Plan (1) Cellulitis Status: Acute Assessment and plan: Location: Left lower extremity. Etiology: Unclear. Likely secondary to swelling from venous stasis or abrasion to the left lower extremity status post fall. Nonpurulent. Failed outpatient oral antibiotics. Not sure if this was because of poor absorption as the patient had vomiting after taking them or if there is not adequate coverage. CT of the left lower extremity showed findings consistent with cellulitis, but no osteomyelitis or abscess. Clinically improved. Continue vancomycin IV. Pharmacy to dose. Goal trough proximally 15. Continue Zosyn 3.375 g IV every 8 hours. Duration of treatment depends on the clinical picture, but likely a total of 14 days. He will likely switch to by mouth antibiotics when ready for discharge recommended Bactrim DS 1 tab by mouth twice a day and Keflex 500 mg by mouth 4 times a day to complete a 14 day course of treatment. Treat through 06/24/18. Monitor renal function and for drug toxicity and dose adjust antibiotics. Qualifiers: Site of cellulitis: extremity Site of cellulitis of extremity: lower extremity Laterality: left Qualified Code(s): L03.116 - Cellulitis of left lower limb (2) Diabetes Status: Acute Assessment and plan: Recommend aggressive glucose monitoring and control to promote wound healing and prevent reinfection. Management per the primary team. Qualifiers: Diabetes mellitus type: type 2 Diabetes mellitus skilled nursing insulin use: with skilled nursing use Diabetes mellitus complication status: without complication Qualified Code(s): E11.9 - Type 2 diabetes mellitus without complications; Z79.4 - intermediate (current) use of insulin (3) HTN (hypertension) Status: Acute Qualifiers: Hypertension type: essential hypertension Qualified Code(s): I10 - Essential (primary) hypertension (4) KIRSTIN (acute kidney injury) Status: Acute Assessment and plan: Likely prerenal secondary to nausea and vomiting from oral antibiotics. Resolved. (5) Foot pain, left Status: Acute Assessment and plan: Location: Left foot. Etiology: Unclear. Neuropathy versus traumatic injury versus other. Pain is not consistent with pain typically caused by cellulitis, second there is possibly another contributing factor. Will ask podiatry to evaluate. Pain management per the primary team. Infectious Disease HPI - Data of Consult Patient: new to practice Consult date: 06/16/18 Requesting Physician: Lobo Golden Primary Care Provider: Perla Manuel CNP - Consult Narrative Reason for consult: LLE cellulitis History of present illness: Mr. Wesley is a 58 year old male with a past medical history of obesity, diabetes, DVT, hypertension, depression, and cellulitis. The patient was admitted to the hospital June 11 for left lower extremity cellulitis. We are consulted June 16 for further recommendations for left lower extremity cellulitis. Flu, the patient is a 4-year-old male with past medical history as stated above. The patient presented to the emergency department on the day of admission with complaints of a 3 day history of redness and swelling that had been unchanged despite a 2 day course of oral Bactrim, clindamycin, and Levaquin. Upon arrival to the ER, the patient did have a low-grade fever, but was otherwise hemodynamically stable. Laboratory studies revealed a normal white blood cell count with a serum creatinine mildly elevated at 1.35. Venous Doppler studies of the bilateral lower extremity's were negative for DVT. Blood cultures were obtained 2 sets. He was started empirically on IV Vanco and Zosyn and admitted to the hospital for further evaluation. Since admission, the patient has had one low-grade fever with a MAXIMUM TEMPERATURE of 100.5. His white blood cell count has remained normal. He had a CT of the lower extremity on June 13 that showed diffuse soft tissue edema with associated skin thickening involving the left lower extremity concerning for cellulitis. There is no organized drainable fluid collection or subcutaneous gas or osteomyelitis. Patient has continued to have persistent redness and swelling of the left lower extremity despite broad-spectrum antibiotic therapy. His uric acid that was checked yesterday was 3.4. Currently, he is on day 6 of IV vancomycin and Zosyn. We have been asked to evaluate and make further recommendations. During my exam today, the patient endorsed a history as stated above. He does report fevers with chills and rigors at home. He denies any headache or neck pain. Reports some mild sinus drainage with a dry cough. Denies any earache or sore throat. Denies chest pain, shortness of breath. Denies nausea, vomiting, diarrhea, or constipation. Denies abdominal pain or urinary complaints. Denies any oral thrush or new skin lesions. Continues to complain of pain in the left lower extremity, worse with ambulation. He does state that he has chronic left knee pain due to osteoarthritis, but this pain in his foot is worse and is burning and sharp-like in nature. He did state that he fell at home about a week and a half ago injuring his left foot and ankle and the pain progressively got worse from there and then he developed a cellulitis. The patient lives at home with his . He is retired from a local factory. He denies any tobacco, alcohol, or illicit drug use. He denies recent travel outside the [facility]. He does have several animals at home, but denies any bites or scratches to the affected area. He denies any chronic infectious diseases. CC: Lobo Golden Past Med Surg Social Fam HX - Past Medical History Attestation: Yes The following information was validated with the patient. Source: patient, old records reviewed, nursing notes reviewed Medical history: DVT, diabetes, hypertension, other Additional medical history: pyelonephritis, obesity,colitis, Psychiatric history: depression - Past Surgical History Surgical History: orthopedic, other Additional surgical history: heart cath no stents, hand surgery, left leg - Social History Smoking Status: Never smoker Smokeless Tobacco Status: No Alcohol use: none Drug use: none Occupational status: retired Current living situation: Home, With Family Activity Level: Uses cane/walker Recent Out of Country Travel Within the Last 8 Weeks: No Exposure or Possible Exposure to Illness During Travel: No - Family History Father Living Status: Age at : 64 Cause of : [place] Infectious Disease-CN:Meds Acetaminophen [Tylenol] 1,000 mg PO Q6HR PRN #90 tablet 09/15/17 [Rx] Ibuprofen [Advil] 400 mg PO QAM 09/15/17 [History] Insulin LISPRO [Humalog Kwikpen U-100] 18 - 22 unit SQ TID PRN 09/15/17 [History ] Lisinopril [Zestril] 20 mg PO DAILY 09/15/17 [History] Atorvastatin [Lipitor] 40 mg PO HS 06/11/18 [History] Fexofenadine HCl [Allergy Relief] 180 mg PO DAILY 06/11/18 [History] Fluticasone Propionate Nasal [Flonase] 1 spr NS DAILY 06/11/18 [History] Gabapentin [Neurontin] 600 mg PO TID 06/11/18 [History] Glimepiride [Amaryl] 4 mg PO DAILY 06/11/18 [History] Insulin Glargine,Hum.rec.anlog [Basaglar Kwikpen U-100] 50 unit SQ QPM 06/11/18 [History] Insulin Glargine,Hum.rec.anlog [Basaglar Kwikpen U-100] 60 unit SQ QAM 06/11/18 [History] Meloxicam [Mobic] 7.5 mg PO DAILY 06/11/18 [History] 3 Allergy/AdvReac Type Severity Reaction Status Date / Time No Known Allergies Allergy Verified 06/11/18 13:30 All systems: reviewed and no additional remarkable complaints except as stated Exam - Constitutional Vitals: Temp Pulse Resp BP Pulse Ox 98.6 F 91 15 141/83 94 06/16/18 10:24 06/16/18 10:24 06/16/18 10:24 06/16/18 10:24 06/16/18 10:24 General appearance: cooperative, no acute distress, obese - Head Head exam: Present: atraumatic, normal inspection, normocephalic - Eye Eye exam: Present: EOMI, normal appearance, PERRL Pupils: Present: normal accommodation - ENT ENT exam: Present: mucous membranes moist - Neck Neck exam: Present: normal inspection - Respiratory Respiratory exam: Present: CTAB. Absent: rales, respiratory distress, rhonchi, wheezes - Cardiovascular Cardiovascular exam: Present: RRR, +S1, +S2 - GI/Abdominal GI/Abdominal exam: Present: distended (obese), normal bowel sounds, soft. Absent: tenderness - Extremities Exam Extremities exam: Present: joint swelling (Left ankle), pedal edema (1+ left lower extremity), tenderness (Left lower extremity). Absent: normal inspection (Venous stasis dermatitis noted to the left lower extremity) Additional comments: Mild erythema and edema noted to the lower portion of the left lower extremity. Small scabbed ulceration noted to the medial aspect of the left pereyra that is scabbed without drainage, fluctuance, tenderness, or drainage. Per the patient , the erythema is improved. Reports significant pain with palpation of the left foot and ankle. - Neurological Exam Neurological exam: Present: alert, oriented X3, no focal deficits - Psychiatric Psychiatric exam: Present: normal affect, normal mood - Skin Skin exam: Present: dry, intact, normal color, warm Infectious Disease CN: Results - Labs CBC & Chem 7: 06/15/18 03:51 06/15/18 03:51 Consult Discharge Plan - Plan Referrals: Perla Manuel CNP [Primary Care Provider] - - Attending Attestation I examined this patient and my medical decision-making was reviewed with the Resident Physician. I agree with the documented findings, disposition and treatment plan as described except to the extent set forth below. This is an addendum to original report dictated by Noemi Trujillo CNP. Please refer to Noemi's note for full detail. Patient is 4-year-old gentleman with past medical history mentioned below including diabetes mellitus type 2 and morbid obesity who has venous stasis apparently had a fall on an swelling and pain and redness in his left lower extremity. Patient was noted to have cellulitis as an outpatient was started on clindamycin and Levaquin and Keflex but could not tolerate taking the medication. Patient came in was started on IV antibiotics including vancomycin and Zosyn. Clinically the patient looks better. That his cellulitis is barely visible if any. Also looks like venous stasis. The patient having severe pain in the back of his foot and is unable to move or step on it. At this point I agree with broad-spectrum antibiotics until patient is ready to leave and then can be switched to oral antibiotics including Bactrim DS and Keflex. I would like podiatry to evaluate the patient maybe get imaging to make sure that he has no fractures or tendinitis. Monitor labs and for drug toxicity Goal vancomycin trough 10-15
[2018-06-16 16:21] LABS: Bilirubin,Urine Negative (Negative); Blood,Urine Negative (Negative); Clarity,Urine Clear (Clear); Color,Urine Yellow (Yellow); Glucose,Urine (UA) 500 mg/dL (Normal); Ketones,Urine Negative (Negative); Leukocyte Esterase,Urine Negative (Negative); Nitrite,Urine Negative (Negative); Protein,Urine Negative (Neg-Trace); Specific Gravity,Urine 1.019 (1.010-1.025); Urobilinogen,Urine Normal (Normal)
[2018-06-16] MEDS ORDERED: Gadolinium Contrast Agent (WT Based) IV PRN (16:54)
--- NOTE | 2018-06-16 17:00 | Podiatry Consult Note ---
Date of Encounter: 06/16/18 Time of Encounter: 12:00 Assessment and Plan (1) Cellulitis Current visit: Yes Status: Acute See left foot and ankle dx for plan CT reviewed , results noted below Continue current antibiotic therapy for cellulitis - ID on board and following Lower Extremity CT 06/13/18 17:03 IMPRESSION: 1. Diffuse soft tissue edema with associated skin thickening involving the left lower extremity. This extends into the footprint predominant along the dorsal soft tissues. Correlate clinically for cellulitis. No organized drainable fluid collections are identified. No evidence for subcutaneous gas. 2. No CT evidence for osteomyelitis. 3. Tricompartmental osteoarthritis of the left knee which is severe within the medial compartment and mild to moderate within the patellofemoral and lateral compartments. 4. Small left knee effusion. D/ / Montrell Reardon MD / Montrell Reardon MD Interpreting Provider: Montrell Reardon MD Qualifiers: Site of cellulitis: extremity Site of cellulitis of extremity: lower extremity Laterality: left Qualified Code(s): L03.116 - Cellulitis of left lower limb (2) Foot pain, left Current visit: Yes Status: Acute Subjective left ankle pain with associated cellulitis Assessed at bedside- edema to LLE noted consistent with cellulitis No open wound or entry point found at this time however patient reports skin tears to plantar aspect of toes after fall. Patient reports intense pain to medial aspect of ankle. subjective hx of fall 2 weeks ago Weakness to dorsiflexion as well as eversion Will obtain MRI to rule out any tendon/ligament damage or septic joint No fluctuance noted to ankle on exam Mild warmth to entire lower extremity extending from just below knee. Sensation intact with light touch to foot Pulses diminished, states he does follow with vascular- will obtain JOLENE's to rule out any blood flow complications Continue IV antibiotic therapy at this time- vanc and zosyn per ID- recommend home on oral antibiotics CT scan completed and negative for any fractures. Explained that compression of the leg is advised, refuses, states MALIK wraps or the compression socks makes his swelling worse Encouraged to elevate and not sit with legs off side of bed. History of Present Illness HPI: Mr. Wesley is a 58 year old male past medical history of diabetes and hypertension -patient reports he fell going up his stairs 2-3 weeks ago. States his toes and foot flexed upwards and he fell onto his left knee. States 3 days prior to admission he was experiencing fevers and chills. He was started on PO antibiotics in an outpatient setting and failed treatment. Patient sitting to side of bed on arrival. Reports pain is most severe to left knee and ankle. Patient reports that sometimes it is a 9/10. Duplex was completed on admission and negative for DVT. He does however have a hx of dvt's . He also has a past history of cellulitis in the same leg. States that was approx 1 year ago and he felt it never completely resolved. Patient had low grade 99.3 temp today. Blood cultures were obtaine, ID on board and initiated on vancomycin and Zosyn, recommended 14 days of treatment and transition to orals. Past Med Surg Social Fam HX - Past Medical History Medical history: DVT, diabetes, hypertension, other Additional medical history: pyelonephritis, obesity,colitis, Psychiatric history: depression - Past Surgical History Surgical History: orthopedic, other Additional surgical history: heart cath no stents, hand surgery, left leg - Social History Smoking Status: Never smoker Smokeless Tobacco Status: No Alcohol use: none Drug use: none - Family History Father Living Status: Age at : 64 Cause of : [place] Medications and Allergies Acetaminophen [Tylenol] 1,000 mg PO Q6HR PRN #90 tablet 09/15/17 [Rx] Ibuprofen [Advil] 400 mg PO QAM 09/15/17 [History] Insulin LISPRO [Humalog Kwikpen U-100] 18 - 22 unit SQ TID PRN 09/15/17 [History ] Lisinopril [Zestril] 20 mg PO DAILY 09/15/17 [History] Atorvastatin [Lipitor] 40 mg PO HS 06/11/18 [History] Fexofenadine HCl [Allergy Relief] 180 mg PO DAILY 06/11/18 [History] Fluticasone Propionate Nasal [Flonase] 1 spr NS DAILY 06/11/18 [History] Gabapentin [Neurontin] 600 mg PO TID 06/11/18 [History] Glimepiride [Amaryl] 4 mg PO DAILY 06/11/18 [History] Insulin Glargine,Hum.rec.anlog [Basaglar Kwikpen U-100] 50 unit SQ QPM 06/11/18 [History] Insulin Glargine,Hum.rec.anlog [Basaglar Kwikpen U-100] 60 unit SQ QAM 06/11/18 [History] Meloxicam [Mobic] 7.5 mg PO DAILY 06/11/18 [History] 3 Allergy/AdvReac Type Severity Reaction Status Date / Time No Known Allergies Allergy Verified 06/11/18 13:30 All Systems Reviewed: as per hpi Physical Exam - Constitutional Vitals: Temp Pulse Resp BP Pulse Ox 98.7 F 67 17 180/117 97 06/16/18 15:08 06/16/18 15:08 06/16/18 15:08 06/16/18 15:08 06/16/18 15:08 General appearance: cooperative, no acute distress, obese Exam: General Examination: CONSTITUTIONAL: Alert, oriented, in no acute distress, non-toxic. EXTREMITIES: CFT 5 seconds all toes. Edema +2 and pedal pulses non palpable, likely related to edema. Toes and foot warm to wouch SKIN: Skin with decreased turgor, decreased subcutaneous tissue, skin thin and shiny with trophic changes associated with comorbidities as described in history.. Edema noted to BLE- Skin changes consistent with cellulitis, edema , erythema and warmth noted however not severe. There is edema across entire dorsum of foot extending onto toes. Webspaces of toes and plantar aspect of foot was inspected for any skin lesions or abrasions. Patient reports there were skin tears noted under toes when he fell these have healed since, possible source of entry. NEUROLOGIC: Grossly intact epicritic and vibratory sensation from toes to tibia, evidenced with use of monofilament 5.07 and tuning fork at 128 CPS. Patient complains of paresthesias and dysesthesias. There is no clinical evidence of loss of protective sensation. MUSCULOSKELETAL: Very weak dorsiflexion on inspection- states it is both painful and weak- also has weakness to eversion of foot. Reports pain to the medial ankle with eversion. Inversion and plantar flexion intact and without weakness or pain. There is edema surrounding the entire ankle joint. Pain noted with palpation of the medial malleolus. There is no fluctuance noted to joint spaces. No pops, cracks or crepitus is noted. Edema and erythema is diffuse and not consolidated to ankle. Results - Labs Result Diagrams: 06/15/18 03:51 06/15/18 03:51 Labs: Abnormal lab results RBC 3.57 M/mcL (4.19-5.50) L 06/15/18 03:51 Hgb 11.2 g/dL (12.9-16.9) L 06/15/18 03:51 Hct 33.8 % (37.5-50.1) L 06/15/18 03:51 MPV 9.3 fL (9.4-12.4) L 06/15/18 03:51 Sodium 134 mEq/L (136-145) L 06/15/18 03:51 Glucose 204 mg/dL (70-105) H 06/15/18 03:51 POC Glucose 253 mg/dL (70-99) H 06/16/18 07:23 Urine Glucose (UA) 500 mg/dL (Normal) H 06/16/18 16:08 Vancomycin Trough 11 mcg/mL (5-10) H 06/16/18 04:21 All other labs normal. Consult Discharge Plan - Plan Referrals: Perla Manuel, PAPER SALES REPRESENTATIVE [Primary Care Provider] -
--- NOTE | 2018-06-16 19:45 | Internal Med Progress Note ---
Hospitalist Progress Note - Encounter Date of Encounter: 06/16/18 Time of Encounter: 19:41 - Subjective Interval History: Pt denies fever or chills but ruining low grade temp yesterday and today. He denies fever, chills, N/V or diarrhea. Denies CP or SOB. Reports B/L LE edema. - Exam Vitals: Temp Pulse Resp BP Pulse Ox 98.7 F 67 17 180/117 97 06/16/18 15:08 06/16/18 15:08 06/16/18 15:08 06/16/18 15:08 06/16/18 15:08 Exam: Constitutional Constitutional: Denies any chills or fevers at this time, morbidly obese pleasant cooperative - EENT Eyes: no change in vision, no discharge, no pain, no photophobia Nose, mouth and throat: no dysphagia, no nasal discharge, no neck pain, no sore throat - Cardiovascular Cardiovascular ROS IM: no chest pain, no diaphoresis, no dyspnea, no lightheadedness, no palpitations, no syncope - Respiratory Respiratory: no cough, no dyspnea, no wheezing, no excessive phlegm production - Gastrointestinal Gastrointestinal: nausea - Musculoskeletal Musculoskeletal ROS IM: no numbness, no tingling - Integumentary Integumentary IM: no rash, no unusual bruising left lower leg is red swollen - Neurological Neurological ROS: no confusion, no convulsions, no focal weakness, no numbness, no tingling, no tremor(s) - Hematologic/Lymphatic Hematologic/Lymphatic: no easy bruising - Assessment and Plan (1) Cellulitis Current Visit: Yes Status: Acute Assessment and Plan: LLE cellulitis that failed out pt treatment. ID on board. Continue vancomycin IV. Pharmacy to dose. Goal trough proximally 15. Continue Zosyn 3.375 g IV every 8 hours. Duration of treatment likely a total of 14 days. Per Id he will likely switch to by mouth antibiotics when ready for discharge (2) Diabetes Current Visit: Yes Status: Acute Assessment and Plan: Glucose uncontrolled. Will increase Levemir to 40 units BID. will cont medium SSI for now. Accu-Checks before meals at bedtime. Diabetic diet (3) HTN (hypertension) Current Visit: Yes Status: Acute Assessment and Plan: Lisinopril (4) KIRSTIN (acute kidney injury) Current Visit: Yes Status: Acute Assessment and Plan: Patient presented with a creatinine 1.35-baseline around 1.14-patient was given IV fluids and is returned to baseline-we will closely monitor renal function Lisinopril was held we will resume but resumed when renal function improved. Mobic resumed Monitor intake and output daily weights Renal dose antibiotics (5) Rheumatoid arthritis Current Visit: Yes Status: Acute Assessment and Plan: Pt will benefit from out pt follow up with Rheumatology. DVT Prophylaxis: Heparin - Summary of Assessment and Plan Summary of Assessment and Plan: Mr. Wesley is a 58 year old male past medical history of diabetes hypertension - according to patient he has been experiencing redness and swelling and pain to his left lower extremity for approximately 3 days. - Time Spent with Patient Total time spent is greater than 50% in coordination of care (as documented) at patient's floor/unit and/or counseling patient: 25 - 35 minutes Plan of Care Discussed with: patient Internal Medicine: Result - Labs CBC & Chem 7: 06/15/18 03:51 06/15/18 03:51 Labs: Urine 06/16/18 Range/Units 16:08 Urine Color Yellow (Yellow) Urine Clarity Clear (Clear) Urine pH 6.0 (5.0-8.0) pH Units Ur Specific [place] 1.019 (1.010-1.025) Urine Protein Negative (Neg-Trace) mg/dL Urine Glucose (UA) 500 H (Normal) mg/dL Consult Discharge Plan - Plan Referrals: Perla Manuel, CORE CHECKER [Primary Care Provider] - (1) Cellulitis Qualifiers: Site of cellulitis: extremity Site of cellulitis of extremity: lower extremity Laterality: left Qualified Code(s): L03.116 - Cellulitis of left lower limb (2) Diabetes Qualifiers: 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
[2018-06-16] MEDS: Insulin DETEMIR 100 UNIT/ML X5UNITS SQ SCH (21:27)
[2018-06-17] MEDS: Piperacillin/Tazobactam 3.375 GM in 0.9 % Sodium Chloride Mini Bag 100 ML IVPB SCH ×3 (02:18→17:14)
[2018-06-17] MEDS: *HR* OxyCODONE Immed Rel 5 MG TABLET PO PRN (02:24)
[2018-06-17] MEDS: *HR* Heparin 5,000 UNIT/ML VIAL SQ SCH ×2 (06:05→17:18)
[2018-06-17] MEDS: Fluticasone Propionate Nasal 50 MCG/SPRAY BOTTLE NS SCH (08:03)
[2018-06-17] MEDS: Gabapentin 300 MG CAPSULE PO SCH ×3 (08:04→20:31)
[2018-06-17] MEDS: Lisinopril 20 MG TABLET PO SCH (08:04)
[2018-06-17] MEDS: Acetaminophen 325 MG TABLET PO PRN (08:04)
[2018-06-17] MEDS: Loratadine 10 MG TABLET PO SCH (08:04)
[2018-06-17] MEDS: Insulin DETEMIR 100 UNIT/ML X5UNITS SQ SCH ×3 (08:05→22:29)
[2018-06-17] MEDS: Insulin LISPRO 300 UNITS/3 ML VIAL SQ SCH ×4 (08:07→20:32)
--- NOTE | 2018-06-17 09:49 | Internal Med Progress Note ---
Hospitalist Progress Note - Encounter Date of Encounter: 06/17/18 Time of Encounter: 20:40 - Subjective Interval History: Pt denies fever or chills but ruining low grade temp yesterday and today. He denies fever, chills, N/V or diarrhea. Denies CP or SOB. Reports B/L LE edema. - Exam Vitals: Temp Pulse Resp BP Pulse Ox 98.6 F 69 16 160/76 96 06/17/18 07:47 06/17/18 07:47 06/17/18 07:47 06/17/18 07:47 06/17/18 07:47 Exam: Constitutional Constitutional: Denies any chills or fevers at this time, morbidly obese pleasant cooperative - EENT Eyes: no change in vision, no discharge, no pain, no photophobia Nose, mouth and throat: no dysphagia, no nasal discharge, no neck pain, no sore throat - Cardiovascular Cardiovascular ROS IM: Distant heart sounds due to body habitus. no chest pain , no diaphoresis, no dyspnea, no lightheadedness, no palpitations, no syncope - Respiratory Respiratory: Distant lung sounds due to body habitus. no cough, no dyspnea, no wheezing, no excessive phlegm production - Gastrointestinal Gastrointestinal: nausea - Musculoskeletal Musculoskeletal ROS IM: no numbness, no tingling - Integumentary Integumentary IM: no rash, no unusual bruising. B/L LE edema L > R. left lower leg erythema, induration, and swollen - Neurological Neurological ROS: no confusion, no convulsions, no focal weakness, no numbness, no tingling, no tremor(s) - Hematologic/Lymphatic Hematologic/Lymphatic: no easy bruising - Assessment and Plan (1) Cellulitis Current Visit: Yes Status: Acute Assessment and Plan: LLE cellulitis that failed out pt treatment. ID on board. Continue vancomycin IV. Pharmacy to dose. Goal trough proximally 15. Continue Zosyn 3.375 g IV every 8 hours. Duration of treatment likely a total of 14 days. Per ID he will likely switch to by mouth antibiotics when ready for discharge. MRI results below concerning for abscess. Will consult orthopedic to see. MRI SOFT TISSUE/POSTCONTRAST IMAGING: Diffuse skin thickening and subcutaneous edema. Slightly more focal fluid collection is seen within the subcutaneous tissues anterior to the tibiotalar joint. For example, refer to series 6, image 14. This measures 19 x 15 mm. Postcontrast imaging demonstrates diffuse increased reactive type enhancement. There is suggestion of mild peripheral enhancement along the more focal anterior fluid collection. MR/MR ankle LT wo/w con IMPRESSION: No evidence of osteomyelitis. Diffuse soft tissue swelling and skin thickening. Slightly more focal fluid collection along the anterior subcutaneous tissues overlying the tibiotalar joint suggestive of an abscess. D/ / 06/17/2018 15:46:02 Gurpreet Richard MD / rashawn Interpreting Provider: Gurpreet Richard MD (2) Diabetes Current Visit: Yes Status: Acute Assessment and Plan: Glucose uncontrolled. Will increase Levemir from 40 units BID to 50 units BID. will cont medium SSI for now. Accu-Checks before meals at bedtime. Diabetic diet (3) HTN (hypertension) Current Visit: Yes Status: Acute Assessment and Plan: Lisinopril (4) KIRSTIN (acute kidney injury) Current Visit: Yes Status: Acute Assessment and Plan: Patient presented with a creatinine 1.35-baseline around 1.14-patient was given IV fluids and is returned to baseline-we will closely monitor renal function Lisinopril was held we will resume but resumed when renal function improved. Mobic resumed Monitor intake and output daily weights Renal dose antibiotics (5) Rheumatoid arthritis Current Visit: Yes Status: Acute Assessment and Plan: Pt will benefit from out pt follow up with Rheumatology. DVT Prophylaxis: Heparin - Summary of Assessment and Plan Summary of Assessment and Plan: Mr. Wesley is a 58 year old male past medical history of diabetes hypertension - according to patient he has been experiencing redness and swelling and pain to his left lower extremity for approximately 3 days. - Time Spent with Patient Total time spent is greater than 50% in coordination of care (as documented) at patient's floor/unit and/or counseling patient: 25 - 35 minutes Plan of Care Discussed with: patient Internal Medicine: Result - Labs CBC & Chem 7: 06/15/18 03:51 06/15/18 03:51 Labs: Urine 06/16/18 Range/Units 16:08 Urine Color Yellow (Yellow) Urine Clarity Clear (Clear) Urine pH 6.0 (5.0-8.0) pH Units Ur Specific [place] 1.019 (1.010-1.025) Urine Protein Negative (Neg-Trace) mg/dL Urine Glucose (UA) 500 H (Normal) mg/dL Consult Discharge Plan - Plan Referrals: Perla Manuel, AGRICULTURAL EDUCATION INSTRUCTOR [Primary Care Provider] - (1) Cellulitis Qualifiers: Site of cellulitis: extremity Site of cellulitis of extremity: lower extremity Laterality: left Qualified Code(s): L03.116 - Cellulitis of left lower limb (2) Diabetes Qualifiers: Diabetes mellitus type: type 2 Diabetes mellitus electronic pagination system operator insulin use: with nursing home use Diabetes mellitus complication status: without complication Qualified Code(s): E11.9 - Type 2 diabetes mellitus without complications; Z79.4 - ticket printer (current) use of insulin (3) HTN (hypertension) Qualifiers: Hypertension type: essential hypertension Qualified Code(s): I10 - Essential (primary) hypertension
--- NOTE | 2018-06-17 13:55 | Infectious Disease Progress No ---
Date of Encounter: 06/17/18 Time of Encounter: 10:10 - Assessment and Plan (1) Cellulitis Current Visit: Yes Status: Acute Location: Left lower extremity. Etiology: Unclear. Likely secondary to swelling from venous stasis or abrasion to the left lower extremity status post fall. Nonpurulent. Failed outpatient oral antibiotics. Not sure if this was because of poor absorption as the patient had vomiting after taking them or if there is not adequate coverage. CT of the left lower extremity showed findings consistent with cellulitis, but no osteomyelitis or abscess. Clinically improved. Continue vancomycin IV. Pharmacy to dose. Goal trough proximally 15. (day 7) Continue Zosyn 3.375 g IV every 8 hours. (day 7) Duration of treatment depends on the clinical picture, but likely a total of 14 days. He will likely switch to by mouth antibiotics when ready for discharge recommended Bactrim DS 1 tab by mouth twice a day and Keflex 500 mg by mouth 4 times a day to complete a 14 day course of treatment. Treat through 06/24/18. Monitor renal function and for drug toxicity and dose adjust antibiotics. Qualifiers: Site of cellulitis: extremity Site of cellulitis of extremity: lower extremity Laterality: left Qualified Code(s): L03.116 - Cellulitis of left lower limb (2) Diabetes Current Visit: Yes Status: Acute Recommend aggressive glucose monitoring and control to promote wound healing and prevent reinfection. Management per the primary team. Qualifiers: Diabetes mellitus type: type 2 Diabetes mellitus assisted insulin use: with manager intermediate use Diabetes mellitus complication status: without complication Qualified Code(s): E11.9 - Type 2 diabetes mellitus without complications; Z79.4 - ocean transportation intermediary (current) use of insulin (3) HTN (hypertension) Current Visit: Yes Status: Acute Qualifiers: Hypertension type: essential hypertension Qualified Code(s): I10 - Essential (primary) hypertension (4) KIRSTIN (acute kidney injury) Current Visit: Yes Status: Acute Likely prerenal secondary to nausea and vomiting from oral antibiotics. Resolved. (5) Foot pain, left Current Visit: Yes Status: Acute Location: Left foot. Etiology: Unclear. Neuropathy versus traumatic injury versus other. Pain is not consistent with pain typically caused by cellulitis, concern that there is possibly another contributing factor. Podiatry consulted. Appreciate recommendations. ABIs and MRI pending completion. Pain management per the primary team. - Subjective Interval history: Patient seen and examined. No acute events noted overnight. Patient states he thinks his leg might be a little bit better today. Denies any fevers or chills or rigors. Denies chest pain, shortness of breath, or cough. Denies nausea, vomiting, diarrhea, constipation. Denies abdominal pain, urinary complaints, or appetite changes. Continues to complain of pain in the left lower leg and foot as well as multiple other areas consistent with his arthritis. Denies any oral thrush or new skin lesions. Infect Dis PN-Objective Data - Labs CBC & Chem 7: 06/15/18 03:51 06/15/18 03:51 Labs: Laboratory Results - last 24 hr 06/16/18 06/16/18 11:19 16:08 POC Glucose 312 H Urine Color Yellow Urine Clarity Clear Urine pH 6.0 Ur Specific [place] 1.019 Urine Protein Negative Urine Glucose (UA) 500 H Urine Ketones Negative Urine Blood Negative Urine Nitrite Negative Urine Bilirubin Negative Urine Urobilinogen Normal Ur Leukocyte Esterase Negative Ur Culture Indicated? NO Cultures: Serology 06/16/18 Range/Units 16:08 Urine Color Yellow (Yellow) Urine Clarity Clear (Clear) Urine pH 6.0 (5.0-8.0) pH Units Ur Specific [place] 1.019 (1.010-1.025) Urine Protein Negative (Neg-Trace) mg/dL Urine Glucose (UA) 500 H (Normal) mg/dL Urine Ketones Negative (Negative) mg/dL Urine Blood Negative (Negative) Urine Nitrite Negative (Negative) Urine Bilirubin Negative (Negative) Urine Urobilinogen Normal (Normal) mg/dL Ur Leukocyte Esterase Negative (Negative) Ur Culture Indicated? NO (NO) Exam - Constitutional Vitals: Temp Pulse Resp BP Pulse Ox 98.6 F 69 16 160/76 96 06/17/18 07:47 06/17/18 07:47 06/17/18 07:47 06/17/18 07:47 06/17/18 07:47 General appearance: cooperative, no acute distress, obese - Head Head exam: Present: atraumatic, normal inspection, normocephalic - Eye Eye exam: Present: EOMI, normal appearance, PERRL Pupils: Present: normal accommodation - ENT ENT exam: Present: mucous membranes moist - Neck Neck exam: Present: normal inspection - Respiratory Respiratory exam: Present: CTAB. Absent: rales, respiratory distress, rhonchi, wheezes - Cardiovascular Cardiovascular exam: Present: RRR, +S1, +S2 - GI/Abdominal GI/Abdominal exam: Present: distended (obese), normal bowel sounds, soft. Absent: tenderness - Extremities Exam Extremities exam: Present: joint swelling (Left ankle), pedal edema (1+ left lower extremity), tenderness (Left foot and ankle). Absent: normal inspection ( Venous stasis dermatitis noted to the left lower extremity) - Neurological Exam Neurological exam: Present: alert, oriented X3, no focal deficits - Psychiatric Psychiatric exam: Present: normal affect, normal mood - Skin Skin exam: Present: dry, intact, normal color, warm Consult Discharge Plan - Plan Referrals: Perla Manuel, HEALTHCARE SALES REPRESENTATIVE [Primary Care Provider] -
[2018-06-18] MEDS: *HR* OxyCODONE Immed Rel 5 MG TABLET PO PRN (00:13)
[2018-06-18] MEDS: Piperacillin/Tazobactam 3.375 GM in 0.9 % Sodium Chloride Mini Bag 100 ML IVPB SCH ×3 (03:30→16:42)
[2018-06-18] MEDS: *HR* Heparin 5,000 UNIT/ML VIAL SQ SCH (05:47)
--- NOTE | 2018-06-18 08:27 | Podiatry Progress Note ---
Date of Encounter: 06/18/18 Time of Encounter: 07:20 - Assessment and Plan (1) Abscess of bursa of left ankle Current Visit: Yes Status: Acute reviewed MRI findings with patient.did discuss with patient it may just be swelling but cannot rule out abscess. discussed incision and drainage of the left ankle and patient wishes to proceed as he says he cannot put weight on the left side without a lot of pain. Nature of the procedures, risks first benefits potential complications consequences of surgery and condition discussed at length. No guarantees made as to the outcome and he would be more functional or that surgery would clear his infection. He understood that this could be a staged procedure and he could need multiple trips to the operating room. Did discuss with him that he would have a wound which she would have to heal and he could have wound healing problems. All of his questions were answered and the informed consent was signed. Nothing by mouth after breakfast. Subjective Interval history: Patient says on and off for a year he has been having cellulitis of his left leg. He has had procedures done on the veins. He says his legs still swell up and will turn red. He does say that he fell recently however he said that is not his problem. He says he finds it difficult to walk since his leg is been red swollen and painful on the left side. He says it is getting somewhat better but it still hurts quite a bit. He says his blood sugars have been high and not under good control. He says he was in the hospital they have been high. He denies feeling like he had a fever recently. Objective - Vital Signs Vital Signs: Vital Signs Temp Pulse Resp BP Pulse Ox 06/18/18 06:52 158/85 06/18/18 06:45 97.7 F 71 18 175/105 97 06/18/18 03:03 99.3 F 70 17 175/81 94 06/18/18 00:11 98.7 F 86 15 183/79 96 06/17/18 20:17 99.2 F 77 16 196/114 95 06/17/18 16:18 97.8 F 67 16 170/90 97 Intake and Output 06/17/18 06/18/18 06/18/18 23:59 07:59 15:59 Intake Total 540 / 540 500 / 500 Output Total 1000 / 1000 975 / 975 Balance -460 / -460 -475 / -475 Intake: IV Fluids 100 / 100 500 / 500 Zosyn 3.375 GM In 0.9 % Sodium 100 / 100 Chloride (Mini-Bag +) 100 ML @ 25 mls/hr IVPB Q8H JOHN Rx#: [id number] Vancocin 1,750 MG In 0.9 % 500 / 500 Sodium Chloride 500 ML @ 333.3 mls/hr IVPB Q12H JOHN Rx#: [id number] Oral 440 / 440 Output: Urine 1000 / 1000 975 / 975 Other: Meal Dinner Percent of Meal Consumed 100% Weight 155 kg Blood Glucose* 352 225 Patient Weight 06/18/18 23:59 Weight 155 kg - Exam Exam: Well-developed obese male in no acute distress Capillary refill time intact to digits of the left foot. Left foot ankle and leg are warm to touch. There is no definitive fluctuance on the left ankle however he is very tender to touch over the anteromedial aspect of the ankle. No pain with palpation laterally or over the lateral ankle ligaments. Skin consistent with someone with venous stasis. Diminished protective sensation. - Lab Result Diagrams: 06/15/18 03:51 06/15/18 03:51 Labs: Abnormal lab results RBC 3.57 M/mcL (4.19-5.50) L 06/15/18 03:51 Hgb 11.2 g/dL (12.9-16.9) L 06/15/18 03:51 Hct 33.8 % (37.5-50.1) L 06/15/18 03:51 MPV 9.3 fL (9.4-12.4) L 06/15/18 03:51 Sodium 134 mEq/L (136-145) L 06/15/18 03:51 Glucose 204 mg/dL (70-105) H 06/15/18 03:51 POC Glucose 225 mg/dL (70-99) H 06/18/18 07:37 Urine Glucose (UA) 500 mg/dL (Normal) H 06/16/18 16:08 Vancomycin Trough 11 mcg/mL (5-10) H 06/16/18 04:21 Consult Discharge Plan - Plan Referrals: Perla Manuel, PUBLIC RELATIONS SENIOR ASSOCIATE [Primary Care Provider] -
[2018-06-18] MEDS: Gabapentin 300 MG CAPSULE PO SCH ×2 (08:57→15:16)
[2018-06-18] MEDS: Fluticasone Propionate Nasal 50 MCG/SPRAY BOTTLE NS SCH (08:58)
[2018-06-18] MEDS: Lisinopril 20 MG TABLET PO SCH (08:58)
[2018-06-18] MEDS: Loratadine 10 MG TABLET PO SCH (09:00)
[2018-06-18] MEDS: Insulin LISPRO 300 UNITS/3 ML VIAL SQ SCH (10:38)
[2018-06-18] MEDS: Insulin DETEMIR 100 UNIT/ML X5UNITS SQ SCH (11:20)
[2018-06-18] MEDS ORDERED: Insulin LISPRO 300 UNITS/3 ML VIAL SQ SCH ×2 (11:30→21:00)
--- NOTE | 2018-06-18 14:21 | Infectious Disease Progress No ---
Date of Encounter: 06/18/18 Time of Encounter: 11:45 - Assessment and Plan (1) Cellulitis Current Visit: Yes Status: Acute Location: Left lower extremity. Etiology: Unclear. Likely secondary to swelling from venous stasis or abrasion to the left lower extremity status post fall. Nonpurulent. Failed outpatient oral antibiotics. Not sure if this was because of poor absorption as the patient had vomiting after taking them or if there is not adequate coverage. CT of the left lower extremity showed findings consistent with cellulitis, but no osteomyelitis or abscess. MRI of the left LE showed findings consistent with an abscess in the anterior subcutaneous tissue overlying the tibiotalur joint. Podiatry is planning for OR I & D later today. Please get cultures if able (aerobic and anaerobic). Clinically improved. Continue vancomycin IV. Pharmacy to dose. Goal trough proximally 15. (day 8) Continue Zosyn 3.375 g IV every 8 hours. (day 8) Duration of treatment depends on the clinical picture. Monitor renal function and for drug toxicity and dose adjust antibiotics. Qualifiers: Site of cellulitis: extremity Site of cellulitis of extremity: lower extremity Laterality: left Qualified Code(s): L03.116 - Cellulitis of left lower limb (2) Diabetes Current Visit: Yes Status: Acute Recommend aggressive glucose monitoring and control to promote wound healing and prevent reinfection. Management per the primary team. Qualifiers: Diabetes mellitus type: type 2 Diabetes mellitus fdc insulin use: with fdc use Diabetes mellitus complication status: without complication Qualified Code(s): E11.9 - Type 2 diabetes mellitus without complications; Z79.4 - residential (current) use of insulin (3) HTN (hypertension) Current Visit: Yes Status: Acute Qualifiers: Hypertension type: essential hypertension Qualified Code(s): I10 - Essential (primary) hypertension (4) KIRSTIN (acute kidney injury) Current Visit: Yes Status: Acute Likely prerenal secondary to nausea and vomiting from oral antibiotics. Resolved. (5) Foot pain, left Current Visit: Yes Status: Acute Location: Left foot. Etiology: Likely multifactorial: abscess + neuropathy + arthritis Pain is not consistent with pain typically caused by cellulitis, concern that there is possibly another contributing factor. Podiatry consulted. Appreciate recommendations. MRI findings as above. Pain management per the primary team. - Subjective Interval history: Patient seen and examined. No acute events noted overnight. Patient states he thinks his leg might be a little bit better today, but still pretty painful. Denies any fevers or chills or rigors. Denies chest pain, shortness of breath, or cough. Denies nausea, vomiting, diarrhea, constipation. Denies abdominal pain, urinary complaints, or appetite changes. Continues to complain of pain in the left lower leg and foot as well as multiple other areas consistent with his arthritis. Denies any oral thrush or new skin lesions. Scheduled to go to the OR later today. Infect Dis PN-Objective Data - Labs CBC & Chem 7: 06/15/18 03:51 06/15/18 03:51 Labs: Laboratory Results - last 24 hr 06/16/18 06/16/18 06/17/18 16:15 20:40 07:44 POC Glucose 316 H 334 H 264 H 06/17/18 06/17/18 06/18/18 16:25 20:10 07:37 POC Glucose 329 H 352 H 225 H 06/18/18 11:07 POC Glucose 342 H Cultures: Serology 06/16/18 Range/Units 16:08 Urine Color Yellow (Yellow) Urine Clarity Clear (Clear) Urine pH 6.0 (5.0-8.0) pH Units Ur Specific [place] 1.019 (1.010-1.025) Urine Protein Negative (Neg-Trace) mg/dL Urine Glucose (UA) 500 H (Normal) mg/dL Urine Ketones Negative (Negative) mg/dL Urine Blood Negative (Negative) Urine Nitrite Negative (Negative) Urine Bilirubin Negative (Negative) Urine Urobilinogen Normal (Normal) mg/dL Ur Leukocyte Esterase Negative (Negative) Ur Culture Indicated? NO (NO) - Impressions Impressions Ankle MRI 06/17/18 16:54 IMPRESSION: No evidence of osteomyelitis. Diffuse soft tissue swelling and skin thickening. Slightly more focal fluid collection along the anterior subcutaneous tissues overlying the tibiotalar joint suggestive of an abscess. D/ / 06/17/2018 15:46:02 Gurpreet Richard MD / rashawn Interpreting Provider: Gurpreet Richard MD Exam - Constitutional Vitals: Temp Pulse Resp BP Pulse Ox 98.5 F 69 18 160/76 97 06/18/18 14:03 06/18/18 14:03 06/18/18 14:03 06/18/18 14:03 06/18/18 14:03 General appearance: cooperative, morbidly obese, no acute distress - Head Head exam: Present: atraumatic, normal inspection, normocephalic - Eye Eye exam: Present: EOMI, normal appearance, PERRL Pupils: Present: normal accommodation - ENT ENT exam: Present: mucous membranes moist - Neck Neck exam: Present: normal inspection - Respiratory Respiratory exam: Present: CTAB. Absent: rales, respiratory distress, rhonchi, wheezes - Cardiovascular Cardiovascular exam: Present: RRR, +S1, +S2 - GI/Abdominal GI/Abdominal exam: Present: distended (obese), normal bowel sounds, soft. Absent: tenderness - Extremities Exam Extremities exam: Present: joint swelling (left ankle), pedal edema (1+ LLE), tenderness (left foot/ankle). Absent: normal inspection (Venous stasis dermatitis noted to the LLE.) - Neurological Exam Neurological exam: Present: alert, oriented X3, no focal deficits - Psychiatric Psychiatric exam: Present: normal affect, normal mood - Skin Skin exam: Present: dry, intact, normal color, warm Consult Discharge Plan - Plan Referrals: Perla Manuel, PROOF CARRIER [Primary Care Provider] - - Attending Attestation I examined this patient and my medical decision-making was reviewed with the Resident Physician. I agree with the documented findings, disposition and treatment plan as described except to the extent set forth below.
--- NOTE | 2018-06-18 14:31 | Internal Med Progress Note ---
Hospitalist Progress Note - Encounter Date of Encounter: 06/18/18 Time of Encounter: 14:16 - Subjective Interval History: Pt denies fever or chills but ruining low grade temp yesterday and today. He denies fever, chills, N/V or diarrhea. Denies CP or SOB. Reports B/L LE edema. - Exam Vitals: Temp Pulse Resp BP Pulse Ox 98.5 F 69 18 160/76 97 06/18/18 14:03 06/18/18 14:03 06/18/18 14:03 06/18/18 14:03 06/18/18 14:03 Exam: Constitutional Constitutional: Denies any chills or fevers at this time, morbidly obese pleasant cooperative - EENT Eyes: no change in vision, no discharge, no pain, no photophobia Nose, mouth and throat: no dysphagia, no nasal discharge, no neck pain, no sore throat - Cardiovascular Cardiovascular ROS IM: Distant heart sounds due to body habitus. no chest pain , no diaphoresis, no dyspnea, no lightheadedness, no palpitations, no syncope - Respiratory Respiratory: Distant lung sounds due to body habitus. no cough, no dyspnea, no wheezing, no excessive phlegm production - Gastrointestinal Gastrointestinal: nausea - Musculoskeletal Musculoskeletal ROS IM: no numbness, no tingling - Integumentary Integumentary IM: no rash, no unusual bruising. B/L LE edema L > R. left lower leg erythema, induration, and swollen - Neurological Neurological ROS: no confusion, no convulsions, no focal weakness, no numbness, no tingling, no tremor(s) - Hematologic/Lymphatic Hematologic/Lymphatic: no easy bruising - Assessment and Plan (1) Cellulitis Current Visit: Yes Status: Acute Assessment and Plan: LLE cellulitis that failed out pt treatment. ID on board. Continue Vancomycin IV. Pharmacy to dose. Goal trough proximally 15. Continue Zosyn 3.375 g IV every 8 hours. Duration of treatment likely a total of 14 days. Per ID he will likely switch to by mouth antibiotics when ready for discharge. MRI results below concerning for abscess. Podiatry consulted to see. MRI SOFT TISSUE/POSTCONTRAST IMAGING: Diffuse skin thickening and subcutaneous edema. Slightly more focal fluid collection is seen within the subcutaneous tissues anterior to the tibiotalar joint. For example, refer to series 6, image 14. This measures 19 x 15 mm. Postcontrast imaging demonstrates diffuse increased reactive type enhancement. There is suggestion of mild peripheral enhancement along the more focal anterior fluid collection. MR/MR ankle LT wo/w con IMPRESSION: No evidence of osteomyelitis. Diffuse soft tissue swelling and skin thickening. Slightly more focal fluid collection along the anterior subcutaneous tissues overlying the tibiotalar joint suggestive of an abscess. (2) Diabetes Current Visit: Yes Status: Acute Assessment and Plan: Glucose uncontrolled. Will increase Levemir from 40 units BID to 50 units BID. Will cont medium SSI for now. Accu-Checks before meals at bedtime. Diabetic diet Discussed with pharmacy this morning and apparently SSI was not being given as prescribed. Pharmacy made changes and will reassess based on now corrected administration of sliding scale. (3) HTN (hypertension) Current Visit: Yes Status: Acute Assessment and Plan: Noted to be higher in the morning prior to getting his Lisinopril. On Lisinopril 20 mg PO QD. Will add HCTZ 12.5 mg PO QD. (4) KIRSTIN (acute kidney injury) Current Visit: Yes Status: Acute Assessment and Plan: Resolved. (5) Rheumatoid arthritis Current Visit: Yes Status: Chronic (6) Abscess of bursa of left ankle Current Visit: Yes Status: Acute Assessment and Plan: Podiatry discussed incision and drainage of the left ankle and patient wishes to proceed. Will also continue with antibiotic per ID. DVT Prophylaxis: Heparin - Summary of Assessment and Plan Summary of Assessment and Plan: Mr. Wesley is a 58 year old male past medical history of diabetes hypertension - according to patient he has been experiencing redness and swelling and pain to his left lower extremity for approximately 3 days. - Time Spent with Patient Total time spent is greater than 50% in coordination of care (as documented) at patient's floor/unit and/or counseling patient: 25 - 35 minutes Plan of Care Discussed with: patient Internal Medicine: Result - Labs CBC & Chem 7: 06/15/18 03:51 06/15/18 03:51 - Impressions Impressions Ankle MRI 06/17/18 16:54 IMPRESSION: No evidence of osteomyelitis. Diffuse soft tissue swelling and skin thickening. Slightly more focal fluid collection along the anterior subcutaneous tissues overlying the tibiotalar joint suggestive of an abscess. D/ / 06/17/2018 15:46:02 Gurpreet Richard MD / rashawn Interpreting Provider: Gurpreet Richard MD Consult Discharge Plan - Plan Referrals: Perla Manuel, CERTIFIED NEURODIAGNOSTIC TECHNOLOGIST [Primary Care Provider] - (1) Cellulitis Qualifiers: Site of cellulitis: extremity Site of cellulitis of extremity: lower extremity Laterality: left Qualified Code(s): L03.116 - Cellulitis of left lower limb (2) Diabetes Qualifiers: Diabetes mellitus type: type 2 Diabetes mellitus prison insulin use: with terminologist use Diabetes mellitus complication status: without complication Qualified Code(s): E11.9 - Type 2 diabetes mellitus without complications; Z79.4 - termite inspector (current) use of insulin (3) HTN (hypertension) Qualifiers: Hypertension type: essential hypertension Qualified Code(s): I10 - Essential (primary) hypertension
[2018-06-18] MEDS ORDERED: *HR* Propofol 200 MG/20 ML VIAL IVP ONE (16:46)
[2018-06-18] MEDS ORDERED: Lidocaine -MPF 2% 2 ML VIAL ONE (16:48)
[2018-06-18] MEDS ORDERED: Bupivacaine/EPI 1:200k 0.25%PF 10 ML VIAL INFILT ONE (17:05)
[2018-06-18] MEDS ORDERED: Metoclopramide 10 MG/2 ML VIAL ONE (17:07)
[2018-06-18] MEDS ORDERED: Acetaminophen IV 1,000 MG/100 ML INFUS..BTL ONE (17:08)
[2018-06-18] MEDS ORDERED: Famotidine 20 MG/2 ML VIAL ONE (17:08)
--- NOTE | 2018-06-18 17:10 | Anesthesia Evaluation PreOp ---
Date of Encounter: 06/18/18 Time of Encounter: 17:00 - Past History Planned Operation: Incision Drainage Left Ankle Cardiac History: HTN, Hyperlipidemia Pulmonary History: Denies Any Significant HX SERVICE LINE LAYER History: Denies Any Significant HX Other Medical History: Diabetes Type II, Other (Morbid Obesity) Anesthesia History: No Prior Anesthetic Complications Alcohol Use: none Drug use: none Medications and Allergies Acetaminophen [Tylenol] 1,000 mg PO Q6HR PRN #90 tablet 09/15/17 [Rx] Ibuprofen [Advil] 400 mg PO QAM 09/15/17 [History] Insulin LISPRO [Humalog Kwikpen U-100] 18 - 22 unit SQ TID PRN 09/15/17 [History ] Lisinopril [Zestril] 20 mg PO DAILY 09/15/17 [History] Atorvastatin [Lipitor] 40 mg PO HS 06/11/18 [History] Fexofenadine HCl [Allergy Relief] 180 mg PO DAILY 06/11/18 [History] Fluticasone Propionate Nasal [Flonase] 1 spr NS DAILY 06/11/18 [History] Gabapentin [Neurontin] 600 mg PO TID 06/11/18 [History] Glimepiride [Amaryl] 4 mg PO DAILY 06/11/18 [History] Insulin Glargine,Hum.rec.anlog [Basaglar Kwikpen U-100] 50 unit SQ QPM 06/11/18 [History] Insulin Glargine,Hum.rec.anlog [Basaglar Kwikpen U-100] 60 unit SQ QAM 06/11/18 [History] Meloxicam [Mobic] 7.5 mg PO DAILY 06/11/18 [History] 3 Allergy/AdvReac Type Severity Reaction Status Date / Time No Known Allergies Allergy Verified 06/11/18 13:30 - Meds/Allergy Pre-op Review Medications Reviewed: Yes Allergies Reviewed: Yes Beta Blockers on Current Med List: No Anesthesia Results - Labs 06/15/18 03:51 06/15/18 03:51 Anesthesia Exam Vital Signs/O2 Sat/Glucose, Most Current Temp Pulse Resp BP Pulse Ox 06/18/18 14:03 98.5 F 69 18 160/76 97 Height: 6'1 Weight: 341 lbs NPO (# of Hours): MN Pain Scale: 0 - HEENT Pupil (Motor): Pupils equal, EOMI Mallampati: III Teeth: Edentulous (no upper dentition) Oral Opening: Less than or equal to 3 - SERVICE LINE LAYER LOC: Oriented SERVICE LINE LAYER Motor: Normal RUE, Normal LUE, Normal RLE, Normal LLE, Normal Face SERVICE LINE LAYER Sensory: Normal: RUE, LUE, RLE, LLE, Face - Cardiac Rhythm: Regular Murmur: None JVD: No Carotid Bruit: No - Pulmonary Breath Sounds: bilateral Clear Respiratory Effort: Symmetrical Anesthesia Assess/Plan ASA Score: 3 (HTN MO DM) Modified Keller Scale for Level of Consciousness: Cooperative, oriented, and tranquil Anesthetic Plan: General Monitoring Plan: Standard Monitors Recovery Plan: PACU (Discussed GA, agrees to proceed)
[2018-06-18] MEDS ORDERED: *HR* HYDROmorphone 2 MG TABLET PO PRN (17:27)
[2018-06-18] MEDS ORDERED: *HR* Labetalol 20 MG/4 ML SYRINGE IVP PRN ×2 (17:27→21:19)
[2018-06-18] MEDS ORDERED: *HR* OxyCODONE Immed Rel 5 MG TABLET PO PRN ×2 (17:27→21:19)
[2018-06-18] MEDS ORDERED: *HR* Promethazine 25 MG/ML VIAL IVP PRN ×2 (17:27→21:19)
[2018-06-18] MEDS ORDERED: Lidocaine -MPF 4% 5 ML AMPUL ONE (17:36)
[2018-06-18] MEDS ORDERED: *HR* Succinylcholine 200 MG/10 ML VIAL IVP ONE (17:36)
[2018-06-18] MEDS ORDERED: *HR* Rocuronium Bromide 50 MG/5 ML VIAL ONE (17:36)
[2018-06-18] MEDS ORDERED: *HR* FentaNYL (PF) 100 MCG/2 ML VIAL ONE (17:40)
[2018-06-18] MEDS ORDERED: Ondansetron 4 MG/2 ML VIAL ONE (17:56)
--- NOTE | 2018-06-18 18:21 | Operative Note ---
Date of procedure: 06/18/18 Pre-op diagnosis: Abscess left ankle Post-op diagnosis: same Procedure: Incision and drainage of left ankle Implants: none Complications: none Anesthesia: GETA Local Anesthetics: 1% Lidocaine HCL SubQ (cc) Surgeon: Aelxis Don Was there an assistant nurse manager present: No Estimated blood loss (cc): 15 Specimen: culture swab left ankle-aerob, anaerob, fungal, afb, gram stain Condition: stable Disposition: PACU Procedure in Detail: Indications: 58-year-old diabetic male admitted with cellulitis of the left lower extremity had MRI showing fluid collection in the anterior medial aspect of the left ankle. Decision was made to perform an incision and drainage. Nature of the procedure, risks versus benefits potential complications consequences of surgery and his condition discussed at length. No guarantees were made as to the outcome or that he would be any better or have less pain for having the procedure done. It was also explained that he could require future surgery. All of his questions were answered and the informed consent signed. The patient was taken from the preoperative holding area and operating room placed on the operating room table in the supine position the left lower extremity was scrubbed prepped and draped in the usual sterile fashion. No tourniquet was applied. The following procedure then began. Incision and drainage. Attention was directed to the anteromedial aspect of the patient's left ankle #15 blade was used to make an incision over the sites at the patient was tender preoperatively and the fluid collection area. Skin incisions were deepened through what dissection care was taken to avoid neurovascular tendinous structures. The anterior tibial tendon was identified and inspected proximally and distally along its course. There was a serous fluid collection which was expelled. There was no devitalized tissue present. Culture swabs of the area were taken. These culture swabs were sent for AFB, fungal, aerobic, anaerobic and Gram stain. The pulse lavage with vancomycin was utilized to irrigate the incision sites. No purulence was seen or expressed during the procedure. The surgical sites were deemed adequate for closure. 0-Prolene was used to reapproximate the skin. Postoperative bandaging included Adaptic, 4 x 4 gauze, kerlix and an Dangelo wrap. Elevation. Patient tolerated the anesthesia procedure well escorted the recovery room with vital signs stable and vascular status intact to the left foot noted by instant capillary refill time to all digits of the left foot. Adequate hemostasis was present at the conclusion of the procedure. Patient to return to the floor.
[2018-06-18] MEDS: *HR* HYDROmorphone (PF) 1 MG/ML SYRINGE IVP PRN ×3 (18:42→19:00)
[2018-06-18] MEDS ORDERED: Ringers Solution, Lactated 1,000 ML ONE (20:04)
[2018-06-18] MEDS ORDERED: *HR* Dextrose 50 % in Water (Syg) 50 ML SYRINGE IVP PRN (21:19)
[2018-06-18] MEDS ORDERED: *HR* HYDROcodone/Acet 5/325 mg TABLET PO PRN (21:19)
[2018-06-18] MEDS ORDERED: *HR* HYDROmorphone (PF) 1 MG/ML SYRINGE IVP PRN (21:19)
[2018-06-18] MEDS ORDERED: D5% in Water 1,000 ML IVC PRN (21:19)
[2018-06-18] MEDS ORDERED: Naloxone 0.4 MG/ML INJ IVP PRN (21:19)
[2018-06-18] MEDS ORDERED: Acetaminophen 325 MG TABLET PO PRN (21:19)
[2018-06-18] MEDS ORDERED: Dextrose Gel 15 GM/37.5 ML TUBE PO PRN ×2 (21:19)
[2018-06-18] MEDS ORDERED: Ondansetron 4 MG/2 ML VIAL IVP PRN (21:19)
--- NOTE | 2018-06-18 21:31 | Event Note ---
Date of Encounter: 06/18/18 Time of Encounter: 21:24 58-year-old male admitted for LLE cellulitis and abscess of bursa of left ankle on IV antibiotics underwent I&D of abscess left ankle. Patient did not have an demina-operative complications. Post-operatively patient was noted to be in Afib/ flutter. EKG was obtained and confirmed a flutter. Patient does not have hx of aflutter. I examined patient once he arrived on the floor. He was alert oriented x3, denies cp, sob. Reports nausea and LLE pain. Vitals: Temp 97.6, HR 64, RR 20, BP 155/78 O2 100 on room air General: pleasant, without distress Cardiovascualr: Irregularly irregular without murmur, absent gallops or rubs, absent pedal edema, radial pulses 2 out of 4 Lungs: Clear to auscultation bilaterally, not in respiratory distress Abdomen: Soft nontender, nondistended positive bowel sounds, absent hepatomegaly Skin: warm and dry, absent rash, absent open wounds and nodules MSK: absent clubbing, cyanosis, left lower extremity asymmetrical swelling. Left ankle bandaged status post I&D Neuro: Cranial nerves II through XII intact, UE and LE sensation equal bilaterally, UE and LEstrength 5/5, alert oriented 3, Psych: calm plan: aflutter: start metoprolol 12.5mg BID. CHADSVASC is 4. Will need to be started on anticoagulation depending on when surgery is ok with it. echocardiogram Nausea: prn phenergan
--- NOTE | 2018-06-18 22:15 | Anesthesia Evaluation Post Op ---
Date of Encounter: 06/18/18 Time of Encounter: 20:10 - Discharge PostOp Status: Transfer Patient to floor Anes Supervising Prov Stmt: PATIENT STABLE IN PACU POST OPERATIVELY AND READY FOR TRANSFER BACK TO FLOOR AROUND 1911. SHORTLY AFTER, AND BEFORE TRANSFER, PATIENT WENT INTO ATRIAL FLUTTER. PATIENT HAS NO HISTORY OF ARRHYTHMIAS, OR CAD. THE PATIENT IS NOT IN DISTRESS. DENIES CP, PRESSURE, SOB. HR 60s. BP AND OTHER VS STABLE. DISCUSSED WITH THE HOSPITALIST BOOSTER PUMP OPERATOR. DISPOSITION TO 2NE INSTEAD OF 3A, AND WILL BE SEEN BY HOSPITALIST THERE. OTHERWISE, THE PATIENT IS STABLE POSTOPERATIVELY AND HAS ADEQUATELY RECOVERED FROM ANESTHESIA. HE HAS STABLE AIRWAY PATENCY AND RESPIRATORY FUNCTION INCLUDING RESPIRATORY RATE AND OXYGEN SATURATION. PATIENT HAS A STABLE BLOOD PRESSURE AND ADEQUATE HYDRATION. PATIENTS MENTAL STATUS IS ACCEPTABLE. PATIENTS TEMPERATURE IS APPROPRIATE. PAIN AND NAUSEA ARE ADEQUATELY CONTROLLED.
[2018-06-19] MEDS: Piperacillin/Tazobactam 3.375 GM in 0.9 % Sodium Chloride Mini Bag 100 ML IVPB SCH ×3 (00:20→18:40)
[2018-06-19] MEDS: *HR* OxyCODONE Immed Rel 5 MG TABLET PO PRN ×3 (01:23→22:38)
[2018-06-19] MEDS ORDERED: *HR* Heparin 5,000 UNIT/ML VIAL SQ SCH (06:00)
[2018-06-19] MEDS ORDERED: Insulin DETEMIR 100 UNIT/ML X5UNITS SQ SCH (09:00)
[2018-06-19] MEDS ORDERED: hydroCHLOROthiazide 25 MG TABLET PO SCH ×2 (09:00)
--- NOTE | 2018-06-19 09:45 | Electrocardiograph Report ---
[place] [id number] Test Date: 2018-06-18 Pat Name: Kwasi Wesley Department: 101 Room: [id number] Gender: M Supervisor Cell Room: : 1960 Requested By: [id number] Order Number: [id number] Reading MD: Gonzales Macdonald Measurements Intervals [place] Rate: 67 P: [place]: 0 QRS: -53 QRSD: 111 T: 57 QT: 460 QTc: 476 Interpretive Statements ATRIAL FLUTTER with 4:1 AV riki LEFT ANTERIOR FASCICULAR BLOCK Electronically Signed On 06-19-2018 9:43:51 EDT by Gonzales Macdonald
[2018-06-19] MEDS: Insulin LISPRO 300 UNITS/3 ML VIAL SQ SCH ×4 (10:48→22:24)
[2018-06-19] MEDS: Loratadine 10 MG TABLET PO SCH (10:53)
[2018-06-19] MEDS: Lisinopril 20 MG TABLET PO SCH (10:55)
[2018-06-19] MEDS: Gabapentin 300 MG CAPSULE PO SCH ×3 (10:55→22:24)
[2018-06-19] MEDS: Fluticasone Propionate Nasal 50 MCG/SPRAY BOTTLE NS SCH (10:56)
--- NOTE | 2018-06-19 11:15 | Cardiology Consult Note ---
<Dalton Lino - Last Filed: 06/19/18 12:05> Date of Encounter: 06/19/18 Time of Encounter: 11:12 Assessment and Plan (1) Cellulitis Current Visit: Yes Status: Acute Per Cardiology: Post op: Incision and drainage of left ankle. Appears improved, ID following, management per primary service. Qualifiers: Site of cellulitis: extremity Site of cellulitis of extremity: lower extremity Laterality: left Qualified Code(s): L03.116 - Cellulitis of left lower limb (2) Atrial flutter with controlled response Current Visit: Yes Status: Acute Per Cardiology: Suspected new onset Atrial flutter-- in the 60s currently. We will discontinue HCTZ 12.5 mg by mouth daily and titrate Lopressor up to 25 mg by mouth twice a day. Remains on MALIK inhibitor. Systolic blood pressure currently 150s to 170s. TSH stable a few months ago. We will check magnesium. Echo pending. Further recommendations pending echo, can consider further ischemic evaluation if deemed clinically appropriate-- last stress test many years ago. Chest pain- free. A symptomatically with atrial flutter. Suspect has obstructive sleep apnea, recommend outpatient sleep study. Regarding long-term anticoagulation, [id number] = 4. Previously anticoagulated with "injections" in the past for DVT-- currently on aspirin only. Denies any active bleeding or blood loss. Denies any falls. We discussed long-term anticoagulation with Coumadin versus DOACs-- patient interested in reynoso check. Discussion w patient/family: The assessment and plan as outlined above was discussed with the patient who expressed understanding and agreement. All questions were answered. Thank you for involving us in the care of your patient. Please call with any questions. History of Present Illness Consult date: 06/19/18 Requesting physician: Desiree Ferguson Consult reason: Atrial Flutter Chief complaint: Leg pain History of present illness: Mr. Wesley is a 58 year old male with a relevant past medical history of DM 2, HTN, obesity, and DVT. Cardiology consult for Aflutter postoperatively. Patient denies any chest pain, short of breath, palpitations. Denies any past awareness to atrial fib atrial fibrillation or atrial flutter, however does report intermittent palpitations at nighttime for many years. He denies any dizziness, syncope, falls. Reports presented initially due to left leg pain with difficulty walking. He denies any known awareness to sleep apnea has never had a sleep study completed. He does report history DVT 3-4 years ago, currently taking aspirin only. He denies any active bleeding or blood loss. Reports stress testing many years ago. Reports he believes he had heart catheterization a few years ago in [place] with no stenting. He reports improvement in left leg pain since surgery. Denies any fever, chills, nausea, vomiting, diarrhea. He reports fatigue about baseline and is always very active doing some pain around his house feeding animals, however limited mobility due to left leg pain. Past Med Surg Social Fam HX - Past Medical History Attestation: Yes The following information was validated with the patient. Source: patient, old records reviewed Medical history: DVT, diabetes, hypertension, other Additional medical history: pyelonephritis, obesity,colitis, Psychiatric history: depression - Past Surgical History Surgical History: orthopedic, other Additional surgical history: heart cath no stents, hand surgery, left leg - Social History Smoking Status: Never smoker Smokeless Tobacco Status: No Alcohol use: none Drug use: none - Family History Father Living Status: Age at : 64 Cause of : [place] Medications and Allergies Acetaminophen [Tylenol] 1,000 mg PO Q6HR PRN #90 tablet 09/15/17 [Rx] Ibuprofen [Advil] 400 mg PO QAM 09/15/17 [History] Insulin LISPRO [Humalog Kwikpen U-100] 18 - 22 unit SQ TID PRN 09/15/17 [History ] Lisinopril [Zestril] 20 mg PO DAILY 09/15/17 [History] Atorvastatin [Lipitor] 40 mg PO HS 06/11/18 [History] Fexofenadine HCl [Allergy Relief] 180 mg PO DAILY 06/11/18 [History] Fluticasone Propionate Nasal [Flonase] 1 spr NS DAILY 06/11/18 [History] Gabapentin [Neurontin] 600 mg PO TID 06/11/18 [History] Glimepiride [Amaryl] 4 mg PO DAILY 06/11/18 [History] Insulin Glargine,Hum.rec.anlog [Basaglar Kwikpen U-100] 50 unit SQ QPM 06/11/18 [History] Insulin Glargine,Hum.rec.anlog [Basaglar Kwikpen U-100] 60 unit SQ QAM 06/11/18 [History] Meloxicam [Mobic] 7.5 mg PO DAILY 06/11/18 [History] 3 Allergy/AdvReac Type Severity Reaction Status Date / Time No Known Allergies Allergy Verified 06/11/18 13:30 All Systems Review: The remainder of the systems were reviewed and are negative - Constitutional Constitutional: fatigue - Cardiovascular Cardiovascular: as per HPI, leg edema - Musculoskeletal Musculoskeletal: abnormal gait, other (leg pain) Physical Examination Vital Signs, Last 4 Hours Temp Pulse Resp BP Pulse Ox 06/19/18 07:28 98.0 F 92 17 153/61 98 General: Conversant, No Apparent Distress HEENT: Atraumatic, Normocephaly, Mucus Membranes Moist Neck: No JVD, Normal carotid pulses Cardiac: Normal S1 and S2, No Murmur, Other (Irregularly irregular) Lungs: Normal Breath Sounds, No Wheeze, Rales, Rhonchi Neuro: Alert and responsive, No focal deficits noted Abdomen: Soft, Non-Tender, Other (Obese) Skin: No rashes noted on visualized skin Musculoskeletal: No Chest Wall Tenderness Extremities: No Clubbing, No Cyanosis, Normal Pulses, Other (Left leg dressing dry and intact) Results 06/15/18 03:51 06/15/18 03:51 Laboratory Tests 06/15/18 06/15/18 03:51 03:51 Hgb 11.2 L Hct 33.8 L Creatinine 0.94 Est GFR (Non-Af Amer) > 60 Laboratory Tests 01/05/18 08:29 TSH 1.730 ITS Impressions Lower Extremity CT 06/13/18 17:03 IMPRESSION: 1. Diffuse soft tissue edema with associated skin thickening involving the left lower extremity. This extends into the footprint predominant along the dorsal soft tissues. Correlate clinically for cellulitis. No organized drainable fluid collections are identified. No evidence for subcutaneous gas. 2. No CT evidence for osteomyelitis. 3. Tricompartmental osteoarthritis of the left knee which is severe within the medial compartment and mild to moderate within the patellofemoral and lateral compartments. 4. Small left knee effusion. D/ / Montrell Reardon MD / Montrell Reardon MD Interpreting Provider: Montrell Reardon MD Ankle MRI 06/17/18 16:54 IMPRESSION: No evidence of osteomyelitis. Diffuse soft tissue swelling and skin thickening. Slightly more focal fluid collection along the anterior subcutaneous tissues overlying the tibiotalar joint suggestive of an abscess. D/ / 06/17/2018 15:46:02 Gurpreet Richard MD / earnold Interpreting Provider: Gurpreet Richard MD Active Medications Acetaminophen (Tylenol) 650 mg PO Q6HR PRN PRN Reason: Mild Pain/Fever Stop: 12/11/18 16:25 Hydrocodone Bitart/Acetaminophen ([place] 5-325 Mg) 1 tab PO Q6HR PRN PRN Reason: Moderate Pain Stop: 12/11/18 16:25 Atorvastatin Calcium (Lipitor) 40 mg PO HS JOHN Stop: 12/11/18 21:01 Dextrose/Water (Dextrose 50% (Syg)) 25 ml IVP AD PRN PRN Reason: Hypoglycemia Stop: 12/11/18 16:30 Fluticasone Propionate (Flonase) 50 mcg NS DAILY JOHN PRN Reason: Protocol Stop: 12/12/18 09:01 Gabapentin (Neurontin) 600 mg PO TID JOHN Stop: 12/11/18 21:01 Glucagon (Glucagen) 1 mg IM ONCE PRN PRN Reason: Hypoglycemia Stop: 12/11/18 16:30 Glucose (Gluctose) 15 gm PO ONCE PRN PRN Reason: Hypoglycemia Stop: 12/11/18 16:30 Glucose (Gluctose) 30 gm PO ONCE PRN PRN Reason: Hypoglycemia Stop: 12/11/18 16:30 Heparin Sodium (Porcine) (Heparin) 5,000 unit SQ Q12HR JOHN Stop: 12/11/18 18:01 Last Admin: 06/19/18 06:21 Dose: 5,000 unit Hydralazine HCl (Hydralazine) 10 mg IVP Q6HR PRN PRN Reason: Hypertension Stop: 12/13/18 20:03 Hydrochlorothiazide (Hydrochlorothiazide) 12.5 mg PO DAILY JOHN PRN Reason: Protocol Stop: 12/19/18 09:01 Dextrose (Dextrose 5%) 1,000 mls @ 100 mls/hr IVC .Q10H PRN PRN Reason: HYPOGLYCEMIA Stop: 12/11/18 16:30 Piperacillin Sod/Tazobactam (Sod 3.375 gm/ Sodium Chloride) 100 mls @ 25 mls/ hr IVPB Q8H [facility] Stop: 12/11/18 17:01 Last Infusion: 06/19/18 04:26 Dose: Infused Vancomycin HCl 1,750 mg/ (Sodium Chloride) 500 mls @ 333.3 mls/hr IVPB Q12H [facility] Stop: 12/17/18 00:01 Last Infusion: 06/19/18 02:21 Dose: Infused Insulin Detemir (Levemir) 50 unit SQ BID [facility] Stop: 12/17/18 21:01 Insulin Human Lispro (Humalog) 0 units SQ TIDAC [facility] PRN Reason: Protocol Stop: 12/18/18 11:31 Last Admin: 06/19/18 10:48 Dose: Not Given Insulin Human Lispro (Humalog) 0 units SQ HS [facility] PRN Reason: Protocol Stop: 12/18/18 21:01 Lisinopril (Zestril) 20 mg PO DAILY [facility] PRN Reason: Protocol Stop: 12/14/18 14:01 Loratadine (Claritin) 10 mg PO DAILY [facility] Stop: 12/12/18 09:01 Meloxicam (Mobic) 7.5 mg PO DAILY [facility] Stop: 12/14/18 14:01 Metoprolol Tartrate (Lopressor) 12.5 mg PO BID [facility] Stop: 12/18/18 21:31 Last Admin: 06/18/18 22:50 Dose: 12.5 mg Naloxone HCl (Narcan) 0.4 mg IVP Q2MIN PRN PRN Reason: SEE COMMENTS Stop: 12/11/18 16:25 Ondansetron HCl (Zofran) 4 mg IVP Q6HR PRN; Protocol PRN Reason: Nausea And Vomiting Stop: 12/11/18 17:10 Oxycodone HCl (Roxicodone) 10 mg PO Q6HR PRN PRN Reason: Severe Pain Stop: 12/13/18 17:12 Last Admin: 06/19/18 01:23 Dose: 10 mg Promethazine HCl (Phenergan) 6.25 mg IVP Q5MIN PRN PRN Reason: Nausea And Vomiting - Imaging and Cardiology Echo: pending - EKG Interpretation EKG results cardiology: personally reviewed (Atrial flutter in the 60s), other ( Tele shows avg HR 68 past 12 hrs, aflutter, currently aflutter 60's) Consult Discharge Plan - Plan Referrals: Perla Manuel, PATHOLOGY ASSISTANT [Primary Care Provider] - <Gonzales Macdonald A - Last Filed: 06/19/18 17:44> Date of Encounter: 06/19/18 - Attending Attestation I have personally performed a face to face evaluation on this patient. I have reviewed and agree with the care plan. History and Exam by me shows: 58 y/o M with aflutter with 4:1 block. Rate controlled on B joe. [id number] is 3. Needs oral anticoagulation for stroke prevention Assessment and Plan Discussion w patient/family: The assessment and plan as outlined above was discussed with the patient and/or family members who expressed understanding and agreement. All questions were answered. Thank you for involving us in the care of your patient. Please call with any questions. History of Present Illness History of present illness: Mr. Wesley is a 58 year old male All Systems Review: The remainder of the systems were reviewed and are negative Physical Examination Vital Signs, Last 4 Hours Temp Pulse Resp BP Pulse Ox 06/19/18 16:39 97.9 F 06/19/18 16:29 63 17 164/80 98 Results 06/19/18 12:08 06/19/18 12:08 Lab Results 06/19/18 06/19/18 12:08 12:08 WBC 8.5 Hgb 11.5 L Hct 35.4 L Plt Count 230 Sodium 133 L Potassium 4.5 Chloride 102 Carbon Dioxide 30 H BUN 18 Creatinine 1.30 Glucose 322 H Calcium 9.3 Magnesium 1.7
--- NOTE | 2018-06-19 11:28 | Infectious Disease Progress No ---
Date of Encounter: 06/19/18 Time of Encounter: 11:26 - Assessment and Plan (1) Cellulitis Current Visit: Yes Status: Acute Location: Left lower extremity. Etiology: Unclear. Likely secondary to swelling from venous stasis or abrasion to the left lower extremity status post fall. Nonpurulent. Failed outpatient oral antibiotics. Not sure if this was because of poor absorption as the patient had vomiting after taking them or if there is not adequate coverage. CT of the left lower extremity showed findings consistent with cellulitis, but no osteomyelitis or abscess. MRI of the left LE showed findings consistent with an abscess in the anterior subcutaneous tissue overlying the tibiotalur joint. Status post I & D left ankle abscess 06/18/[address] Don. Operative note reviewed. Serous drainage noted intra-op. Cultures obtained and are pending, but gram stain is negative. Clinically improved. Continue vancomycin IV. Pharmacy to dose. Goal trough proximally 15. (day 9/ post-op day #1) Continue Zosyn 3.375 g IV every 8 hours. (day 8/post-op day #1) Duration of treatment depends on the clinical picture. Monitor renal function and for drug toxicity and dose adjust antibiotics. Qualifiers: Site of cellulitis: extremity Site of cellulitis of extremity: lower extremity Laterality: left Qualified Code(s): L03.116 - Cellulitis of left lower limb (2) Abscess of bursa of left ankle Current Visit: Yes Status: Acute Location: Left ankle. Causative organism: Unclear. MRI completed 06/17/18 showed findings consistent with abscess overlying the left tibiotalur joint. Podiatry consulted. Status post I & D 06/18/[address] Don. Operative note reviewed. Serous drainage noted intra-op. Cultures obtained and pending. Antibiotics as above. Duration of treatment depends on the clinical picture. Wound care and activity per the podiatry team. (3) Diabetes Current Visit: Yes Status: Acute Recommend aggressive glucose monitoring and control to promote wound healing and prevent reinfection. Management per the primary team. Qualifiers: Diabetes mellitus type: type 2 Diabetes mellitus long line teamster insulin use: with long line teamster use Diabetes mellitus complication status: without complication Qualified Code(s): E11.9 - Type 2 diabetes mellitus without complications; Z79.4 - terminal computer operator (current) use of insulin (4) HTN (hypertension) Current Visit: Yes Status: Acute Qualifiers: Hypertension type: essential hypertension Qualified Code(s): I10 - Essential (primary) hypertension (5) KIRSTIN (acute kidney injury) Current Visit: Yes Status: Acute Likely prerenal secondary to nausea and vomiting from oral antibiotics. Resolved. (6) Foot pain, left Current Visit: Yes Status: Acute Location: Left foot. Etiology: Likely multifactorial: abscess + neuropathy + arthritis Pain is not consistent with pain typically caused by cellulitis, concern that there is possibly another contributing factor. Podiatry consulted. Appreciate recommendations. MRI findings as above. Pain management per the primary team. (7) Atrial flutter Current Visit: Yes Status: Acute Qualifiers: Atrial flutter type: unspecified Qualified Code(s): I48.92 - Unspecified atrial flutter - Subjective Interval history: Patient seen and examined. Status post I & D Left ankle abscess. Went into a- fib/flutter post-op. Reports minimal pain at the surgical site, but states he has not attempted to walk on it yet. Denies chest pain, shortness of breath, or cough. Denies nausea, vomiting, diarrhea, constipation. Denies abdominal pain, urinary complaints, or appetite changes. Denies oral thrush or new skin lesions. Infect Dis PN-Objective Data - Labs CBC & Chem 7: 06/15/18 03:51 06/15/18 03:51 Labs: Laboratory Results - last 24 hr 06/17/18 06/17/18 06/17/18 11:58 16:25 20:10 POC Glucose 330 H 329 H 352 H 06/18/18 06/19/18 20:43 07:33 POC Glucose 226 H 255 H Cultures: Cultures 06/18/18 18:02 Gram Stain - Final Left Foot Serology 06/16/18 Range/Units 16:08 Urine Color Yellow (Yellow) Urine Clarity Clear (Clear) Urine pH 6.0 (5.0-8.0) pH Units Ur Specific [place] 1.019 (1.010-1.025) Urine Protein Negative (Neg-Trace) mg/dL Urine Glucose (UA) 500 H (Normal) mg/dL Urine Ketones Negative (Negative) mg/dL Urine Blood Negative (Negative) Urine Nitrite Negative (Negative) Urine Bilirubin Negative (Negative) Urine Urobilinogen Normal (Normal) mg/dL Ur Leukocyte Esterase Negative (Negative) Ur Culture Indicated? NO (NO) Exam - Constitutional Vitals: Temp Pulse Resp BP Pulse Ox 98.0 F 92 17 153/61 98 06/19/18 07:28 06/19/18 07:28 06/19/18 07:28 06/19/18 07:28 06/19/18 07:28 General appearance: cooperative, morbidly obese, no acute distress - Head Head exam: Present: atraumatic, normal inspection, normocephalic - Eye Eye exam: Present: EOMI, normal appearance, PERRL Pupils: Present: normal accommodation - ENT ENT exam: Present: mucous membranes moist - Neck Neck exam: Present: normal inspection - Respiratory Respiratory exam: Present: CTAB. Absent: rales, respiratory distress, rhonchi, wheezes - Cardiovascular Cardiovascular exam: Present: irregular rhythm. Absent: tachycardia - GI/Abdominal GI/Abdominal exam: Present: distended (obese), normal bowel sounds, soft. Absent: tenderness - Extremities Exam Extremities exam: Present: pedal edema (1+ LLE). Absent: joint swelling, normal inspection (Venous stasis dermatitis noted to the BLE.), tenderness Additional comments: Left ankle dressing C/D/I. - Neurological Exam Neurological exam: Present: alert, oriented X3, no focal deficits - Psychiatric Psychiatric exam: Present: normal affect, normal mood - Skin Skin exam: Present: dry, intact, normal color, warm Consult Discharge Plan - Plan Referrals: Perla Manuel, OUTREACH DIRECTOR [Primary Care Provider] -
[2018-06-19 12:41] LABS: Basophils % 0.2 %; Eosinophils # 0.3 K/mcL (0.0-0.6); Eosinophils % 3.4 %; Hematocrit 35.4 % (37.5-50.1); Hemoglobin 11.5 g/dL (12.9-16.9); Immature Granulocytes % 0.4 % (0-4); Lymphocytes % 11.9 %; Mean Corpuscular HGB Conc 32.5 g/dL (31.6-35.5); Mean Corpuscular Hemoglobin 31.5 pg (28.0-33.3); Mean Platelet Volume 9.3 fL (9.4-12.4); Monocytes # 0.5 K/mcL (0.0-1.3); Monocytes % 6.1 %; Neutrophils # 6.6 K/mcL (1.6-8.9); Platelet Count 230 K/mcL (140-400); Red Blood Count 3.65 M/mcL (4.19-5.50); Red Cell Distribution Width 12.7 % (11.5-14.5)
[2018-06-19 13:03] LABS: BUN/Creatinine Ratio 14 (6-26); Blood Urea Nitrogen 18 mg/dL (8-23); C-Reactive Protein 37 mg/L (Less than 10); Calcium 9.3 mg/dL (8.6-10.3); Carbon Dioxide 30 mEq/L (23-29); Chloride 102 mEq/L (98-107); Glucose 322 mg/dL (70-105); Magnesium 1.7 mg/dL (1.6-2.6); Osmolality,Calculated 290 (280-300); Potassium 4.5 mEq/L (3.5-5.1); Sodium 133 mEq/L (136-145); eGFR For Non-African Americans 56 (> 60)
--- NOTE | 2018-06-19 14:31 | Event Note ---
Date of Encounter: 06/19/18 Time of Encounter: 14:30 - Cardiology Event Note Remains a flutter in the 60s to 70s. Discussed and reviewed with Dr. Macdonald, follow-up as outpatient and evaluate for potential further ischemic evaluation turned a stress testing as needed. Goncalves check completed for Eliquis 5 mg by mouth twice a day with 0 co-pay. We will initiate at this time. Echo pending, assuming no significant findings, cardial G will sign off and follow up in outpatient setting. Patient verbalized understanding and agree to plan. All questions answered.
[2018-06-19] MEDS: Apixaban 5 MG TABLET PO SCH ×2 (15:18→22:24)
--- NOTE | 2018-06-19 16:50 | Internal Med Progress Note ---
Hospitalist Progress Note - Encounter Date of Encounter: 06/19/18 Time of Encounter: 16:47 - Subjective Interval History: Pt denies fever or chills but ruining low grade temp yesterday and today. He denies fever, chills, N/V or diarrhea. Denies CP or SOB. Reports B/L LE edema. - Exam Vitals: Temp Pulse Resp BP Pulse Ox 97.9 F 63 17 164/80 98 06/19/18 16:39 06/19/18 16:29 06/19/18 16:29 06/19/18 16:29 06/19/18 16:29 Exam: Constitutional Constitutional: Denies any chills or fevers at this time, morbidly obese pleasant cooperative - EENT Eyes: no change in vision, no discharge, no pain, no photophobia Nose, mouth and throat: no dysphagia, no nasal discharge, no neck pain, no sore throat - Cardiovascular Cardiovascular ROS IM: Distant heart sounds due to body habitus. no chest pain , no diaphoresis, no dyspnea, no lightheadedness, no palpitations, no syncope - Respiratory Respiratory: Distant lung sounds due to body habitus. no cough, no dyspnea, no wheezing, no excessive phlegm production - Gastrointestinal Gastrointestinal: nausea - Musculoskeletal Musculoskeletal ROS IM: no numbness, no tingling - Integumentary Integumentary IM: no rash, no unusual bruising. B/L LE edema L > R. left lower leg erythema, induration, and swollen - Neurological Neurological ROS: no confusion, no convulsions, no focal weakness, no numbness, no tingling, no tremor(s) - Hematologic/Lymphatic Hematologic/Lymphatic: no easy bruising - Assessment and Plan (1) Abscess of bursa of left ankle Current Visit: Yes Status: Acute (2) Cellulitis Current Visit: Yes Status: Acute Assessment and Plan: LLE cellulitis that failed out pt treatment. ID on board. Continue Vancomycin IV. Pharmacy to dose. Goal trough proximally 15. Continue Zosyn 3.375 g IV every 8 hours. Duration of treatment likely a total of 14 days. MRI results below concerning for abscess. Podiatry consulted and s/p incision and drainage. MRI SOFT TISSUE/POSTCONTRAST IMAGING: Diffuse skin thickening and subcutaneous edema. Slightly more focal fluid collection is seen within the subcutaneous tissues anterior to the tibiotalar joint. For example, refer to series 6, image 14. This measures 19 x 15 mm. Postcontrast imaging demonstrates diffuse increased reactive type enhancement. There is suggestion of mild peripheral enhancement along the more focal anterior fluid collection. MR/MR ankle LT wo/w con IMPRESSION: No evidence of osteomyelitis. Diffuse soft tissue swelling and skin thickening. Slightly more focal fluid collection along the anterior subcutaneous tissues overlying the tibiotalar joint suggestive of an abscess. (3) Atrial flutter Current Visit: Yes Status: Acute Assessment and Plan: Pt developed new onset A flutter post procedure. Cardiology was consulted and he has been started on Eliquis and Metoprolol. Echo done and results pending. (4) Diabetes Current Visit: Yes Status: Acute Assessment and Plan: Glucose uncontrolled. Will increase Levemir from 50 units BID to 60 units BID. Will cont medium SSI for now. Accu-Checks before meals at bedtime. Diabetic diet. Discussed with pharmacy the morning of 06/18/18 and apparently SSI was not being given as prescribed. Pharmacy made changes and will reassess based on now corrected administration of sliding scale. (5) HTN (hypertension) Current Visit: Yes Status: Acute Assessment and Plan: Noted to be higher in the morning prior to getting his Lisinopril. On Lisinopril 20 mg PO QD. Will add HCTZ 12.5 mg PO QD. Pt started on Metoprolol 25 mg PO BID due to Aflutter. (6) KIRSTIN (acute kidney injury) Current Visit: Yes Status: Acute Assessment and Plan: Resolved but Cr went up from 0.94 to 1.30. Will continue to monitor. (7) Rheumatoid arthritis Current Visit: Yes Status: Chronic Assessment and Plan: Meloxicam discontinued for now. Tylenol and [place] for norco. DVT Prophylaxis: Eliquis - Summary of Assessment and Plan Summary of Assessment and Plan: Mr. Wesley is a 58 year old male past medical history of diabetes hypertension - according to patient he has been experiencing redness and swelling and pain to his left lower extremity for approximately 3 days. - Time Spent with Patient Total time spent is greater than 50% in coordination of care (as documented) at patient's floor/unit and/or counseling patient: less than 15 minutes Plan of Care Discussed with: patient Internal Medicine: Result - Labs CBC & Chem 7: 06/19/18 12:08 06/19/18 12:08 Labs: Short CBC 06/19/18 Range/Units 12:08 WBC 8.5 (4.3-11.1) K/mcL Hgb 11.5 L (12.9-16.9) g/dL Hct 35.4 L (37.5-50.1) % Plt Count 230 (140-400) K/mcL Neutrophils # 6.6 (1.6-8.9) K/mcL BMP 06/19/18 12:08 Sodium 133 L Potassium 4.5 Chloride 102 Carbon Dioxide 30 H BUN 18 Creatinine 1.30 Glucose 322 H Calcium 9.3 - Impressions Impressions Echocardiogram 06/19/18 08:00 Impressions: LVEF 55-60%. Indeterminate diastolic function. RV size is dilated. Function is normal. Moderately dilated left atrium. Mild tricuspid regurgitation. Mild pulmonary hypertension by TR signal. IVC is not well visualized to estimate RVSP. Left Ventricular Wall Motion: Rest Echo Findings All wall segments showed normal motion. Findings: Study Quality * Technically adequate exam. ECG Findings * Atrial flutter. Left Ventricle * LVEF 55-60%. * Normal LV chamber size, wall thickness and function. * Indeterminate diastolic function. Right Ventricle * RV size is dilated. Function is normal. Left Atrium * Moderately dilated left atrium. Right Atrium * Normal right atrial size. Aortic Valve * No aortic regurgitation. * Trileaflet aortic valve. * Mildly calcified aortic valve leaflets. * No aortic stenosis. Mitral Valve * Normal mitral valve structure. * No mitral stenosis. * Trace mitral regurgitation. * Mild mitral annular calcification Tricuspid Valve * Tricuspid valve not well visualized. * Mild tricuspid regurgitation. Pulmonic Valve * Pulmonic valve is not well visualized. * No pulmonic stenosis. * No pulmonic regurgitation. Pulmonary Artery * Pulmonary artery not well visualized. Aorta * Normally sized aortic root. Pericardium * There is no pericardial effusion present. Interatrial Septum * Interatrial septum not well evaluated. IVC * The IVC is not well evaluated. Consult Discharge Plan - Plan Referrals: Perla Manuel, [facility] [Primary Care Provider] - (2) Cellulitis Qualifiers: Site of cellulitis: extremity Site of cellulitis of extremity: lower extremity Laterality: left Qualified Code(s): L03.116 - Cellulitis of left lower limb (3) Atrial flutter Qualifiers: Atrial flutter type: unspecified Qualified Code(s): I48.92 - Unspecified atrial flutter (4) Diabetes Qualifiers: Diabetes mellitus type: type 2 Diabetes mellitus exterminator termite insulin use: with fci use Diabetes mellitus complication status: without complication Qualified Code(s): E11.9 - Type 2 diabetes mellitus without complications; Z79.4 - correction (current) use of insulin (5) HTN (hypertension) Qualifiers: Hypertension type: essential hypertension Qualified Code(s): I10 - Essential (primary) hypertension
--- NOTE | 2018-06-19 20:41 | Podiatry Progress Note ---
Date of Encounter: 06/19/18 Time of Encounter: 20:00 - Assessment and Plan (1) Abscess of bursa of left ankle Current Visit: Yes Status: Acute day 1 s/p I&D left ankle. patient says his ankle feels better. says I just want to get out of here. erythema of the ankle decreased. he is non-tender with palpation over the ankle joint. sutures intact. s/p I&D left ankle-feels better -discussed surgical procedure and intra-operative findings -he can be anti-coagulated, no contra-indication with his surgery -discussed culture results currently - as far as his wound, it is closed. can be changed twice weekly with adaptic, 4x4 gauze, kerlix -called central supply to bring the patient a cam walker boot and they did bring it -patient may ambulate in boot, if boot does not fit then he may ambulate in surgical shoe -MALIK bandages for compression -educated patient on elevation, compression, etc. -antibiotics per infectious disease -ankle stable, follow up as out patient in 1 week, there is nothing further surgical during this in patient stay if something concerning for more surgery arises then call in regards to him asking me when he can leave-my response to him regarding when he can leave is when the antibiotics you will leave on have been decided upon and that may not be until the cultures are back which takes 3-5 days following the time they were taken and antibiotics may have to be set up. Subjective Interval history: Patient says on and off for a year he has been having cellulitis of his left leg. He has had procedures done on the veins. He says his legs still swell up and will turn red. He does say that he fell recently however he said that is not his problem. He says he finds it difficult to walk since his leg is been red swollen and painful on the left side. He says it is getting somewhat better but it still hurts quite a bit. He says his blood sugars have been high and not under good control. He says he was in the hospital they have been high. He denies feeling like he had a fever recently. Objective - Vital Signs Vital Signs: Vital Signs Temp Pulse Resp BP Pulse Ox 06/19/18 16:39 97.9 F 06/19/18 16:29 63 17 164/80 98 06/19/18 07:28 98.0 F 92 17 153/61 98 06/19/18 04:45 97.8 F 65 16 164/94 100 06/19/18 00:43 98.0 F 89 16 171/96 95 06/18/18 22:30 100 06/18/18 21:32 98.6 F 70 16 178/92 98 06/18/18 20:45 74 18 158/89 97 06/18/18 20:40 69 16 170/98 98 Intake and Output 06/19/18 06/19/18 06/19/18 07:59 15:59 23:59 Intake Total 700 / 700 100 / 100 Output Total 1135 / 1135 500 / 500 Balance -435 / -435 -400 / -400 Intake: IV Fluids 600 / 600 100 / 100 Zosyn 3.375 GM In 0.9 % Sodium 100 / 100 100 / 100 Chloride (Mini-Bag +) 100 ML @ 25 mls/hr IVPB Q8H JOHN Rx#: [id number] Vancocin 1,750 MG In 0.9 % 500 / 500 Sodium Chloride 500 ML @ 333.3 mls/hr IVPB Q12H JOHN Rx#: [id number] Oral 100 / 100 Output: Urine 1135 / 1135 500 / 500 Other: Stool Size Small Stool Consistency loose soft Stool Color Brown # Bowel Movements 1 Weight 156 kg Blood Glucose* 255 291 260 Patient Weight 06/19/18 23:59 Weight 156 kg - Lab Result Diagrams: 06/19/18 12:08 06/19/18 12:08 Labs: Abnormal lab results RBC 3.65 M/mcL (4.19-5.50) L 06/19/18 12:08 Hgb 11.5 g/dL (12.9-16.9) L 06/19/18 12:08 Hct 35.4 % (37.5-50.1) L 06/19/18 12:08 MPV 9.3 fL (9.4-12.4) L 06/19/18 12:08 ESR 120 mm/hr (0-10) H 06/19/18 12:08 Sodium 133 mEq/L (136-145) L 06/19/18 12:08 Carbon Dioxide 30 mEq/L (23-29) H 06/19/18 12:08 Est GFR (Non-Af Amer) 56 (> 60) L 06/19/18 12:08 Glucose 322 mg/dL (70-105) H 06/19/18 12:08 POC Glucose 260 mg/dL (70-99) H 06/19/18 16:33 C-Reactive Protein 37 mg/L (Less than 10) H 06/19/18 12:08 Urine Glucose (UA) 500 mg/dL (Normal) H 06/16/18 16:08 Vancomycin Trough 22 mcg/mL (5-10) H 06/19/18 12:08 Microbiology, Last 48 Hours 06/18/18 18:02 Gram Stain - Final Left Foot Consult Discharge Plan - Plan Referrals: Perla Manuel, [employer] CLAIMS MANAGER [Primary Care Provider] -
[2018-06-19] MEDS: Insulin DETEMIR 100 UNIT/ML X5UNITS SQ SCH (22:23)
[2018-06-20] MEDS: Piperacillin/Tazobactam 3.375 GM in 0.9 % Sodium Chloride Mini Bag 100 ML IVPB SCH ×3 (02:28→18:05)
[2018-06-20 05:17] LABS: BUN/Creatinine Ratio 15 (6-26); Blood Urea Nitrogen 22 mg/dL (8-23); eGFR For Non-African Americans 51 (> 60)
[2018-06-20] MEDS: Insulin LISPRO 300 UNITS/3 ML VIAL SQ SCH ×4 (08:13→21:41)
[2018-06-20] MEDS: Loratadine 10 MG TABLET PO SCH (08:17)
[2018-06-20] MEDS: Gabapentin 300 MG CAPSULE PO SCH ×3 (08:18→21:44)
[2018-06-20] MEDS: Lisinopril 20 MG TABLET PO SCH (08:18)
[2018-06-20] MEDS: Apixaban 5 MG TABLET PO SCH ×2 (08:18→21:43)
[2018-06-20] MEDS: Insulin DETEMIR 100 UNIT/ML X5UNITS SQ SCH ×2 (08:18→21:42)
[2018-06-20] MEDS: Fluticasone Propionate Nasal 50 MCG/SPRAY BOTTLE NS SCH (08:20)
--- NOTE | 2018-06-20 11:49 | Internal Med Progress Note ---
Hospitalist Progress Note - Encounter Date of Encounter: 06/20/18 Time of Encounter: 11:47 - Subjective Interval History: Patient seen and evaluated at bedside, reports feeling well and he wants to go home. His pain in the left lower extremity. Denies fever or chills. - Exam Vitals: Temp Pulse Resp BP Pulse Ox 98.5 F 81 15 115/80 98 06/20/18 07:00 06/20/18 07:00 06/20/18 07:00 06/20/18 07:00 06/20/18 07:00 Exam: General: Alert and oriented 4. No acute distress. Cardiovascular: irregularly, irregular, Normal S1 & S2, no rubs, murmurs or gallops. No JVD. Lungs: Clear to auscultation bilaterally, no wheezes or crackles. Abdomen: Obese, Soft, non-tender, no rigidity. NABS in all 4 quadrants. Extremities: 2+ edema in the lower extremity bilaterally, no tenderness. Chronic venous stasis changes bilaterally. Left lower extremity with surgical dressing. Which is clean and intact. Neurological:Normal cognition and motor skills. Rest of the physical exam is non contributory - Assessment and Plan (1) KIRSTIN (acute kidney injury) Current Visit: Yes Status: Acute Assessment and Plan: Multifactorial. Possible secondary to Vancomycin. Vanco trough of 22. Plan: Started on gentle IV hydration. Vanco trough as per pharmacy protocol. Avoid nephrotoxic medication (2) Cellulitis Current Visit: Yes Status: Acute Assessment and Plan: As per patient denies significant improvement in the swelling of the left lower extremity. No erythema, no tenderness with palpation. Plan Continue vancomycin On Piperacillin/Tazobactam 3.3375mg Q8HR/IV Antibiotics as per ID recommendations B/C: no grwoth final report Wound culture: no growth preliminary report. (3) Abscess of bursa of left ankle Current Visit: Yes Status: Acute Assessment and Plan: Status post I&D day 2 by statistical programmer analyst. Wound culture: no growth (preliminary report). MRI: No evidence of osteomyelitis. Diffuse soft tissue swelling and skin thickening. Slightly more focal fluid collection along the anterior subcutaneous tissues overlying the tibiotalar joint suggestive of an abscess. Plan as per Cabinetmaker Maintenance recommendations follow up as out patient in 1 week dressing change twice weekly with adaptic, 4x4 gauze, kerlix patient may ambulate in boot, if boot does not fit then he may ambulate in surgical shoe On broad spectrum antibiotics (4) Diabetes Current Visit: Yes Status: Acute Assessment and Plan: Blood sugar well controlled. Plan Continue Levemir 60 units subcutaneous twice a day, and lispro sliding scale, and 5 units before meals. Carb controlled diet. (5) HTN (hypertension) Current Visit: Yes Status: Acute Assessment and Plan: Blood pressure well controlled. Plan Continue lisinopril 20 mg daily On metoprolol 25 mg twice a day. We will continue to monitor for medication adjustment if needed (6) DVT prophylaxis Current Visit: Yes Status: Acute Assessment and Plan: Patient on an oral Anticoagulant due to atrial flutter. (7) Atrial flutter Current Visit: Yes Status: Acute Assessment and Plan: Rate controlled. Continue metoprolol and anticoagulation as per cardiology recommendation. - Time Spent with Patient Total time spent is greater than 50% in coordination of care (as documented) at patient's floor/unit and/or counseling patient: 25 - 35 minutes Plan of Care Discussed with: patient (the nurse.) Internal Medicine: Result - Labs CBC & Chem 7: 06/19/18 12:08 06/20/18 03:01 Labs: Short CBC 06/19/18 Range/Units 12:08 WBC 8.5 (4.3-11.1) K/mcL Hgb 11.5 L (12.9-16.9) g/dL Hct 35.4 L (37.5-50.1) % Plt Count 230 (140-400) K/mcL Neutrophils # 6.6 (1.6-8.9) K/mcL BMP 06/19/18 06/20/18 12:08 03:01 Sodium 133 L Potassium 4.5 Chloride 102 Carbon Dioxide 30 H BUN 18 22 Creatinine 1.30 1.42 H Glucose 322 H Calcium 9.3 - Impressions Impressions Echocardiogram 06/19/18 08:00 Impressions: LVEF 55-60%. Indeterminate diastolic function. RV size is dilated. Function is normal. Moderately dilated left atrium. Mild tricuspid regurgitation. Mild pulmonary hypertension by TR signal. IVC is not well visualized to estimate RVSP. Left Ventricular Wall Motion: Rest Echo Findings All wall segments showed normal motion. Findings: Study Quality * Technically adequate exam. ECG Findings * Atrial flutter. Left Ventricle * LVEF 55-60%. * Normal LV chamber size, wall thickness and function. * Indeterminate diastolic function. Right Ventricle * RV size is dilated. Function is normal. Left Atrium * Moderately dilated left atrium. Right Atrium * Normal right atrial size. Aortic Valve * No aortic regurgitation. * Trileaflet aortic valve. * Mildly calcified aortic valve leaflets. * No aortic stenosis. Mitral Valve * Normal mitral valve structure. * No mitral stenosis. * Trace mitral regurgitation. * Mild mitral annular calcification Tricuspid Valve * Tricuspid valve not well visualized. * Mild tricuspid regurgitation. Pulmonic Valve * Pulmonic valve is not well visualized. * No pulmonic stenosis. * No pulmonic regurgitation. Pulmonary Artery * Pulmonary artery not well visualized. Aorta * Normally sized aortic root. Pericardium * There is no pericardial effusion present. Interatrial Septum * Interatrial septum not well evaluated. IVC * The IVC is not well evaluated. Consult Discharge Plan - Plan Referrals: Perla Manuel, MULTI OPERATION MACHINE OPERATOR [Primary Care Provider] - (2) Cellulitis Qualifiers: Site of cellulitis: extremity Site of cellulitis of extremity: lower extremity Laterality: left Qualified Code(s): L03.116 - Cellulitis of left lower limb (4) Diabetes Qualifiers: Diabetes mellitus type: type 2 Diabetes mellitus exterminator insulin use: with exterminator use Diabetes mellitus complication status: without complication Qualified Code(s): E11.9 - Type 2 diabetes mellitus without complications; Z79.4 - prison (current) use of insulin (5) HTN (hypertension) Qualifiers: Hypertension type: essential hypertension Qualified Code(s): I10 - Essential (primary) hypertension (7) Atrial flutter Qualifiers: Atrial flutter type: unspecified Qualified Code(s): I48.92 - Unspecified atrial flutter
[2018-06-20] MEDS: *HR* OxyCODONE Immed Rel 5 MG TABLET PO PRN (23:47)
[2018-06-21] MEDS: Piperacillin/Tazobactam 3.375 GM in 0.9 % Sodium Chloride Mini Bag 100 ML IVPB SCH ×2 (01:13→08:12)
[2018-06-21 04:19] LABS: BUN/Creatinine Ratio 16 (6-26); Blood Urea Nitrogen 23 mg/dL (8-23); Calcium 9.1 mg/dL (8.6-10.3); Carbon Dioxide 26 mEq/L (23-29); Chloride 104 mEq/L (98-107); Glucose 183 mg/dL (70-105); Magnesium 1.8 mg/dL (1.6-2.6); Osmolality,Calculated 290 (280-300); Phosphorous 3.9 mg/dL (2.7-4.5); Sodium 136 mEq/L (136-145); eGFR For Non-African Americans 51 (> 60)
[2018-06-21 07:27] VITALS: BP 149/71
[2018-06-21] MEDS: Apixaban 5 MG TABLET PO SCH (08:11)
[2018-06-21] MEDS: Gabapentin 300 MG CAPSULE PO SCH (08:12)
[2018-06-21] MEDS: Lisinopril 20 MG TABLET PO SCH (08:12)
[2018-06-21] MEDS: Loratadine 10 MG TABLET PO SCH (08:12)
[2018-06-21] MEDS: Fluticasone Propionate Nasal 50 MCG/SPRAY BOTTLE NS SCH (08:13)
[2018-06-21] MEDS: Insulin LISPRO 300 UNITS/3 ML VIAL SQ SCH ×2 (08:14→12:21)
[2018-06-21] MEDS: Insulin DETEMIR 100 UNIT/ML X5UNITS SQ SCH (08:15)
--- NOTE | 2018-06-21 08:28 | Discharge Summary ---
- NOTES TO OUTPATIENT PROVIDER Notes to Outpatient Provider: Follow-up with infectious disease within a week. Follow-up with logistics planning manager within a week. BMP within a week to follow kidney function. Orders not resulted at time of discharge: Pending orders 06/18/18 18:02 AFB Culture, Tissue [TB] Routine AFB Smear [TB] Routine Culture,Anaerobic [RM] Routine Fungal Culture [MYC] Routine 06/21/18 03:48 Hgb A1C AM 0400 Date of Encounter: 06/21/18 Time of Encounter: 08:26 - Discharge Diagnosis (1) Cellulitis Priority: Primary Status: Acute Qualifiers: Site of cellulitis: extremity Site of cellulitis of extremity: lower extremity Laterality: left Qualified Code(s): L03.116 - Cellulitis of left lower limb (2) KIRSTIN (acute kidney injury) Priority: Secondary Status: Acute Assessment and Plan: Resolving. Follow-up with his primary care physician to have a BMP done within a week. (3) Abscess of bursa of left ankle Priority: Secondary Status: Resolved (4) Diabetes Priority: Secondary Status: Chronic Qualifiers: Diabetes mellitus type: type 2 Diabetes mellitus detention insulin use: with oysterman use Diabetes mellitus complication status: without complication Qualified Code(s): E11.9 - Type 2 diabetes mellitus without complications; Z79.4 - predatory animal exterminator (current) use of insulin (5) HTN (hypertension) Priority: Secondary Status: Chronic Qualifiers: Hypertension type: essential hypertension Qualified Code(s): I10 - Essential (primary) hypertension (6) DVT prophylaxis Priority: Secondary Status: Chronic (7) Atrial flutter Priority: Secondary Status: Chronic Qualifiers: Atrial flutter type: unspecified Qualified Code(s): I48.92 - Unspecified atrial flutter Hospital course: Mr. Wesley is a 58 year old male past medical history significant for DVT, diabetes, and hypertension. Patient presented to the emergency room complaining of swelling and pain in the left lower extremities of 3 days' duration. Patient treated for cellulitis in the outpatient setting by his primary care physician before presenting to the emergency room. Patient admitted for cellulitis of the lower extremity, myelitis was ruled out by MRI. An abscess of the bursa of the left ankle and underwent I&D by logistics planning manager. Blood cultures and wound cultures showed no growth final report. Patient swelling in the lower extremity has significantly improved. Patient is hemodynamically stable to be discharged home on oral antibiotic. Recommended to follow-up with logistics planning manager within a week, and infectious disease regarding antibiotic adjustment if needed. Recommended to follow-up with his primary care physician within 1-2 weeks to follow-up his kidney function. - Time Spent with Patient Total time spent providing and/or coordinating discharge services: Less than 30 minutes - Discharge Medications Prescriptions: HYDROcodone/Acet 5/325 mg [Bridgman 5-325 mg] 1 tab PO Q6HR PRN 5 Days #10 tablet PRN Reason: Moderate Pain Amoxicillin/Clavulanate [Augmentin] 875 mg PO BIDWM 7 Days #14 tablet Apixaban [Eliquis] 5 mg PO BID 30 Days #60 tablet Metoprolol [Lopressor] 25 mg PO BID 30 Days #60 tablet Home Medications: Acetaminophen [Tylenol] 1,000 mg PO Q6HR PRN #90 tablet 09/15/17 [Rx] Ibuprofen [Advil] 400 mg PO QAM 09/15/17 [History] Insulin LISPRO [Humalog Kwikpen U-100] 18 - 22 unit SQ TID PRN 09/15/17 [History ] Lisinopril [Zestril] 20 mg PO DAILY 09/15/17 [History] Atorvastatin [Lipitor] 40 mg PO HS 06/11/18 [History] Fexofenadine HCl [Allergy Relief] 180 mg PO DAILY 06/11/18 [History] Fluticasone Propionate Nasal [Flonase] 1 spr NS DAILY 06/11/18 [History] Gabapentin [Neurontin] 600 mg PO TID 06/11/18 [History] Glimepiride [Amaryl] 4 mg PO DAILY 06/11/18 [History] Insulin Glargine,Hum.rec.anlog [Basaglar Kwikpen U-100] 50 unit SQ QPM 06/11/18 [History] Insulin Glargine,Hum.rec.anlog [Basaglar Kwikpen U-100] 60 unit SQ QAM 06/11/18 [History] Meloxicam [Mobic] 7.5 mg PO DAILY 06/11/18 [History] Amoxicillin/Clavulanate [Augmentin] 875 mg PO BIDWM 7 Days #14 tablet 06/21/18 [ Rx] Apixaban [Eliquis] 5 mg PO BID 30 Days #60 tablet 06/21/18 [Rx] HYDROcodone/Acet 5/325 mg [Bridgman 5-325 mg] 1 tab PO Q6HR PRN 5 Days #10 tablet 06/21/18 [Rx] Metoprolol [Lopressor] 25 mg PO BID 30 Days #60 tablet 06/21/18 [Rx] Allergies/Adverse Reactions: 3 Allergy/AdvReac Type Severity Reaction Status Date / Time No Known Allergies Allergy Verified 06/11/18 13:30 Date of admission: 06/11/18 18:03 Primary care physician: Perla Manuel CNP Consults: 06/15/18 16:41 Consult to Infectious Diseases [CONS] Routine Consulting Provider: Infectious Disease [facility] Reason for Consult: cellulitis Time Notified: 16:41 Call Completed: Yes 06/17/18 11:02 Consult to Podiatry [CONS] Routine Consulting Provider: [facility] Reason for Consult: Left foot pain Time Notified: 11:02 Call Completed: Yes 06/19/18 09:11 Consult to Cardiology [CONS] Routine Comment: Consulting Provider: Cardiology [facility] Reason for Consult: atrial flutter/afib Call Completed: No - Constitutional Vitals: Temp Pulse Resp BP Pulse Ox 98.5 F 70 15 149/71 99 06/21/18 07:26 06/21/18 07:26 06/21/18 07:26 06/21/18 07:26 06/21/18 07:26 General appearance: Present: A&O X 3, morbidly obese Exam: General: Alert and oriented 4. No acute distress. Cardiovascular: irregularly, irregular, Normal S1 & S2, no rubs, murmurs or gallops. No JVD. Lungs: Clear to auscultation bilaterally, no wheezes or crackles. Abdomen: Obese, Soft, non-tender, no rigidity. NABS in all 4 quadrants. Extremities: 2+ edema in the lower extremity bilaterally, no tenderness. Chronic venous stasis changes bilaterally. Left lower extremity with surgical dressing. Which is clean and intact. Neurological: Normal cognition and motor skills. Rest of the physical exam is non contributory - Patient Status Disposition: Home, Self-Care Condition: Good Functional capacity at discharge: independent ambulation Overall status at discharge: patient is progressing back to baseline - Discharge Instructions Follow Up With: Perla Manuel DOUBLE NEEDLE OPERATOR [Primary Care Provider] - - Diet and Activity Activity: resume usual activities as tolerated Diet: diabetic diet
[2018-06-21 11:00] LABS: Estimated Average Glucose 197 mg/dl; Hemoglobin A1C 8.5 %
[2018-06-21] MEDS ORDERED: Aminoglycoside Consult 1 EACH MC ONE (13:33)
== END 2018-06-21 13:34 | disposition home or self-care (01) | DRG 952 ==
LOC: 3ANU 11:42 → EMEROOARM 11:42 → 3ANU 16:16 → SUATTDRO 18:03 → 2NENU 06-18 21:05
PROVIDERS: ADMIT Student in an Organized Health Care Education/Training Program; ATTEND Internal Medicine

== ENCOUNTER 2019-10-07 13:03 | Inpatient (IN) ==
[~2019-10-07 13:03] MED LIST: *HR* Propofol 200 MG/20 ML VIAL IVP ONE; Lidocaine -MPF 2% 2 ML VIAL ONE; Propofol 500 MG/50 ML INFUS..BTL ONE; Tranexamic Acid 1,000 MG/10 ML VIAL ONE
[2019-10-07] MEDS ORDERED: Ethanol\\Acetic Acid\\Na Ace\\Ben 1,000 ML IRRIG.SOLN IR ONE (13:08)
[2019-10-07] MEDS ORDERED: Total Joint Mixture (50 ml) IR ONE (13:25)
[2019-10-07] MEDS ORDERED: Celecoxib 200 MG CAPSULE PO ONE (13:56)
[2019-10-07] MEDS ORDERED: *HR* OxyCODONE ER (12 HR) 10 MG TABLET PO ONE (13:56)
[2019-10-07] MEDS ORDERED: Gabapentin 300 MG CAPSULE PO ONE (13:56)
[2019-10-07] MEDS ORDERED: *HR* OxyCODONE Immed Rel 5 MG TABLET PO PRN (13:58)
[2019-10-07] MEDS ORDERED: Ondansetron 4 MG/2 ML VIAL IVP ONE (13:58)
[2019-10-07] MEDS ORDERED: CeFAZolin Syr 3,000MG/30 ML 3,000 MG/30 ML SYRINGE IVPB ONE (14:10)
[2019-10-07] MEDS ORDERED: Albuterol 2.5 MG/3 ML NEBULIZER IH PRN (14:10)
[2019-10-07] MEDS ORDERED: Ringers Solution, Lactated 1,000 ML IVC SCH ×2 (14:15→17:58)
[2019-10-07] MEDS ORDERED: Lidocaine HCL 4 ML Topical Solution (Laryng-O-Jet Kit Sterile Pak) TP ONE (14:17)
[2019-10-07] MEDS ORDERED: *HR* Succinylcholine 200 MG/10 ML VIAL IVP ONE (14:18)
[2019-10-07] MEDS ORDERED: D5% in 0.45% NACL 1,000 ML IVC ONE (14:19)
[2019-10-07] MEDS ORDERED: Ondansetron 4 MG/2 ML VIAL ONE ×2 (14:19→14:22)
[2019-10-07] MEDS ORDERED: Dexamethasone 4 MG/ML VIAL ONE (14:19)
[2019-10-07] MEDS ORDERED: *HR* FentaNYL (PF) 100 MCG/2 ML VIAL ONE (14:19)
[2019-10-07] MEDS ORDERED: Tranexamic Acid 1,000 MG/10 ML VIAL ONE (14:20)
[2019-10-07] MEDS ORDERED: ROPIVACAINE/PF/NS 0.25% 1 EACH SYRINGE INTRAART ONE (14:57)
[2019-10-07] MEDS ORDERED: *HR* HYDROMORPHONE 2 MG/ML VIAL ONE (15:38)
[2019-10-07] MEDS: *HR* HYDROmorphone (PF) 1 MG/ML SYRINGE IVP PRN ×2 (17:09→17:19)
[2019-10-07] MEDS ORDERED: MOM Conc 10 ML UD.LIQ PO PRN (17:58)
[2019-10-07] MEDS ORDERED: *HR* Promethazine 25 MG/ML VIAL IVP PRN (17:58)
[2019-10-07] MEDS ORDERED: Sennosides 8.6 MG TABLET PO PRN (17:58)
[2019-10-07] MEDS ORDERED: NON-FORMULARY MEDICATION 1 EACH EACH (Dulaglutide [Trulicity] 0.75 MG) SQ SCH (17:58)
[2019-10-07] MEDS ORDERED: Naloxone 0.4 MG/ML INJ IVP PRN (17:58)
[2019-10-07] MEDS ORDERED: *HR* Dextrose 50 % in Water (Syg) 50 ML SYRINGE IVP PRN (17:58)
[2019-10-07] MEDS ORDERED: D5% in Water 1,000 ML IVC PRN (17:58)
[2019-10-07] MEDS ORDERED: HYDROcodone BIT/Homatropine 5 MG TABLET PO PRN (17:58)
[2019-10-07] MEDS ORDERED: Dextrose Gel 15 GM/37.5 ML TUBE PO PRN ×2 (17:58)
[2019-10-07] MEDS ORDERED: Temazepam 15 MG CAPSULE PO PRN (17:58)
[2019-10-07 18:40] LABS: Hematocrit 39.2 % (37.5-50.1); Hemoglobin 13.2 g/dL (12.9-16.9)
[2019-10-07] MEDS: Ascorbic Acid 500 MG TABLET PO SCH (20:08)
[2019-10-07] MEDS: *HR* OxyCODONE Immed Rel 5 MG TABLET PO PRN (20:09)
[2019-10-07] MEDS: Insulin DETEMIR 100 UNIT/ML X5UNITS SQ SCH (20:16)
[2019-10-07] MEDS: Insulin LISPRO 300 UNITS/3 ML VIAL SQ SCH ×3 (20:20→21:42)
[2019-10-07] MEDS: Gabapentin 400 MG CAPSULE PO SCH (20:38)
[2019-10-07] MEDS: ceFAZolin sodium 3,000 MG in 0.9 % Sodium Chloride 100 ML IVPB SCH (21:36)
[2019-10-07] MEDS: Apixaban 5 MG TABLET PO SCH (22:38)
[2019-10-08] MEDS: *HR* OxyCODONE Immed Rel 5 MG TABLET PO PRN ×3 (02:34→16:58)
[2019-10-08] MEDS: Ondansetron 4 MG/2 ML VIAL IVP PRN (04:53)
[2019-10-08 07:14] LABS: Basophils % 0.2 %; Eosinophils % 0.1 %; Hematocrit 36.7 % (37.5-50.1); Hemoglobin 11.7 g/dL (12.9-16.9); Immature Granulocytes % 0.8 % (0-4); Lymphocytes # 0.8 K/mcL (0.6-4.6); Lymphocytes % 4.5 %; Mean Corpuscular HGB Conc 31.9 g/dL (31.6-35.5); Mean Corpuscular Hemoglobin 32.6 pg (28.0-33.3); Mean Corpuscular Volume 102.2 fL (83.0-100.0); Mean Platelet Volume 9.5 fL (9.4-12.4); Monocytes # 0.6 K/mcL (0.0-1.3); Monocytes % 3.7 %; Neutrophils # 15.1 K/mcL (1.6-8.9); Platelet Count 200 K/mcL (140-400); Red Blood Count 3.59 M/mcL (4.19-5.50); Red Cell Distribution Width 12.7 % (11.5-14.5); Segmented Neutrophils % 90.7 %; White Blood Count 16.6 K/mcL (4.3-11.1)
[2019-10-08 07:30] LABS: BUN/Creatinine Ratio 18 (6-26); Blood Urea Nitrogen 26 mg/dL (8-23); Calcium 8.3 mg/dL (8.6-10.3); Carbon Dioxide 28 mEq/L (23-29); Chloride 99 mEq/L (98-107); Glucose 278 mg/dL (70-105); Osmolality,Calculated 291 (280-300); Potassium 5.7 mEq/L (3.5-5.1); Sodium 133 mEq/L (136-145); eGFR For African Americans > 60 (> 60); eGFR For Non-African Americans 51 (> 60)
[2019-10-08] MEDS: ceFAZolin sodium 3,000 MG in 0.9 % Sodium Chloride 100 ML IVPB SCH (08:20)
[2019-10-08] MEDS: Insulin LISPRO 300 UNITS/3 ML VIAL SQ SCH ×7 (09:06→21:28)
[2019-10-08] MEDS: Fluticasone Propionate Nasal 50 MCG/SPRAY BOTTLE NS SCH (09:07)
[2019-10-08] MEDS: Insulin DETEMIR 100 UNIT/ML X5UNITS SQ SCH ×2 (09:07→21:28)
[2019-10-08] MEDS: Gabapentin 400 MG CAPSULE PO SCH ×3 (09:09→21:28)
[2019-10-08] MEDS: Multivit/Ca/Min/Fe/FA 1 TAB TABLET PO SCH (09:10)
[2019-10-08] MEDS: Lisinopril 20 MG TABLET PO SCH (09:10)
[2019-10-08] MEDS: Loratadine 10 MG TABLET PO SCH (09:11)
[2019-10-08] MEDS: Apixaban 5 MG TABLET PO SCH ×2 (09:11→21:28)
[2019-10-08] MEDS: Ascorbic Acid 500 MG TABLET PO SCH ×2 (09:11→16:58)
[2019-10-08] MEDS: Diltiazem CD (24hr) 120 MG CAPSULE PO SCH (09:11)
[2019-10-08] MEDS: *HR* Glimepiride 4 MG TABLET PO SCH (09:11)
[2019-10-09] MEDS: *HR* OxyCODONE Immed Rel 5 MG TABLET PO PRN ×4 (00:19→16:26)
[2019-10-09] MEDS: Insulin LISPRO 300 UNITS/3 ML VIAL SQ SCH ×4 (07:47→11:46)
[2019-10-09] MEDS: Gabapentin 400 MG CAPSULE PO SCH ×2 (08:51→16:26)
[2019-10-09] MEDS: Multivit/Ca/Min/Fe/FA 1 TAB TABLET PO SCH (08:52)
[2019-10-09] MEDS: Lisinopril 20 MG TABLET PO SCH (08:52)
[2019-10-09] MEDS: Ascorbic Acid 500 MG TABLET PO SCH ×2 (08:52→16:26)
[2019-10-09] MEDS: Diltiazem CD (24hr) 120 MG CAPSULE PO SCH (08:53)
[2019-10-09] MEDS: Apixaban 5 MG TABLET PO SCH (08:53)
[2019-10-09] MEDS: *HR* Glimepiride 4 MG TABLET PO SCH (08:53)
[2019-10-09] MEDS: Loratadine 10 MG TABLET PO SCH (08:53)
[2019-10-09] MEDS: Insulin DETEMIR 100 UNIT/ML X5UNITS SQ SCH (08:58)
[2019-10-09] MEDS: Ondansetron 4 MG/2 ML VIAL IVP PRN (08:58)
[2019-10-09 10:35] VITALS: BP 116/74
[2019-10-09] MEDS: Fluticasone Propionate Nasal 50 MCG/SPRAY BOTTLE NS SCH (10:38)
[2019-10-09 16:11] LABS: Basophils % 0.4 %; Eosinophils # 0.3 K/mcL (0.0-0.6); Eosinophils % 2.6 %; Hematocrit 32.4 % (37.5-50.1); Hemoglobin 11.2 g/dL (12.9-16.9); Immature Granulocytes % 0.4 % (0-4); Lymphocytes # 1.7 K/mcL (0.6-4.6); Lymphocytes % 15.2 %; Mean Corpuscular HGB Conc 34.6 g/dL (31.6-35.5); Mean Corpuscular Hemoglobin 33.3 pg (28.0-33.3); Mean Corpuscular Volume 96.4 fL (83.0-100.0); Mean Platelet Volume 9.8 fL (9.4-12.4); Monocytes # 1.1 K/mcL (0.0-1.3); Monocytes % 9.9 %; Platelet Count 172 K/mcL (140-400); Red Blood Count 3.36 M/mcL (4.19-5.50); Segmented Neutrophils % 71.5 %; White Blood Count 11.1 K/mcL (4.3-11.1)
[2019-10-09 17:06] LABS: BUN/Creatinine Ratio 27 (6-26); Blood Urea Nitrogen 32 mg/dL (8-23); Calcium 8.5 mg/dL (8.6-10.3); Carbon Dioxide 18 mEq/L (23-29); Chloride 105 mEq/L (98-107); Glucose 234 mg/dL (70-105); Osmolality,Calculated 288 (280-300); Sodium 132 mEq/L (136-145); eGFR For African Americans > 60 (> 60); eGFR For Non-African Americans > 60 (> 60)
== END 2019-10-09 17:35 | disposition home health service (06) | DRG 302 ==
LOC: SAMDAY 13:03 → 3NENU 17:57
PROVIDERS: ADMIT Orthopaedic Surgery; ATTEND Orthopaedic Surgery